=== PATIENT | female | born 1935 | race Asian ===

== ENCOUNTER → 2016-06-04 | Outpatient (CLI) | payer BC ==
[~2016-06-04] MED LIST: ACT35 PO; ASPEC81 PO; ASPI81TA28 PO; B-COTAB18 PO; CALC600T9 PO; CALC625T PO; CZR50 PO; FBR PO; GINKO BILOBA PO; HYDC25 PO; HYDR25TA4 PO; IBUP-1050 PO; LEVO50TA6 PO; LOSA1TAB38 PO; MAGN1TAB41 PO; MULT-190 PO; MULT-506 PO; OMEG10007 PO; PRT/20 PO; SYN50 PO; VIT B PO
== END | disposition home or self-care (01) ==
LOC: C.MAMM 13:08
PROVIDERS: ATTEND Family Medicine
DX: M85.851 Other specified disorders of bone density and structure, right thigh (principal); M85.852 Other specified disorders of bone density and structure, left thigh

== ENCOUNTER → 2016-08-23 | Day surgery (SDC) | payer BC ==
[2016-07-31 13:15] VITALS: Ht 157.5 cm; Wt 68.2 kg
[~2016-08-23] VITALS: Ht 157.5 cm; Wt 68.2 kg
[~2016-08-23] MED LIST changes: -ACT35 PO; -GINKO BILOBA PO; +LIDOCAINE HCL 1% MPF 5 ML VIAL ONE; +SODIUM CHLORIDE 0.9% INJ 10 ML VIAL ONE; -VIT B PO
[2016-08-23 14:38] VITALS: TEMP 36.6
--- NOTE | 2016-08-23 14:53 | History & Physical Bridge - [place] ---
H&P Re-Evaluation Bridge Note: I have examined the patient, reviewed the History & Physical and in the interval since the performance of the History & Physical I have noted the following changes of clinical significance: No changes noted
--- NOTE | 2016-08-23 15:24 | Discharge Instructions ---
Discharge Instructions Date of Service Aug 23, 2016. Visit Reason for Visit: Lumbar Radiculopathy Discharge Discharge Diagnosis / Problem: Left leg pain Discharge Goals Goal(s): Improve function Activity Recommendations Activity Limitations: resume your previous activity Anesthesia . Post Anesthesia Instructions: If you have had General Anesthesia or IV Sedation: * Do not drive today. * Resume driving when surgeon permits. * Do not make important decisions or sign legal documents today. * Call surgeon for: 1. Temperature elevations greater than 101 degrees F. 2. Uncontrollable pain. 3. Excessive bleeding. 4. Persistent nausea and vomiting. 5. Medication intolerance (nausea, vomiting or rash). * For nausea and vomiting use only clear liquids such as: tea, soda, bouillon until nausea subsides, then gradually increase diet as tolerated. * If you have any concerns or questions, call your surgeon's office. If physician is unavailable and it is an emergency, call 911 or go to the nearest emergency room. . Diet Recommendations Recommended Home Diet: resume previous diet Procedures Procedures Performed: CAUDAL EPIDURAL STEROID INJECTION. Pending Studies Studies pending at discharge: no Medical Emergencies . Who to Call and When: Medical Emergencies: If at any time you feel your situation is an emergency, please call 911 immediately. . Non-Emergent Contact Non-Emergency issues call your: Specialist . . "Provider Documentation" section prepared by Roque King.
[2016-08-23 15:31] VITALS: BP 177/80; PULSE 61; O2SAT 94
--- NOTE | 2016-08-23 16:06 | OPERATIVE REPORT ---
DATE OF OPERATION: 08/23/2016 PREOPERATIVE DIAGNOSES: Grade 1 L4-L5 spondylolisthesis with a history of a lumbar decompression and persistent left lower extremity radiculopathy. POSTOPERATIVE DIAGNOSIS: Same. PROCEDURE: Caudal epidural steroid injection under fluoroscopic guidance. INDICATIONS: The patient is an 81-year-old [place] female who presents today with radicular pain that has not responded to conservative measures. She is ready for an epidural and will be done via the caudal approach, given her history of surgery. PHYSICAL EXAMINATION: Pleasant female seated comfortably. She has no focal weakness. She has subjective decreased sensation in the right L4 dermatomal distribution. Negative seated straight leg raises. CONSENT: Verbal and written consent was obtained from the patient. Risks and benefits were reviewed. Risks include but are not limited to abscess and allergic reaction and she wishes to proceed. DESCRIPTION OF PROCEDURE: The patient was taken back to the special procedures room of the [facility] where she was maintained in a prone position. Backside was cleansed with Betadine x3 and a dry sterile dressing was applied. Fluoroscope was used to identify the sacral hiatus and the overlying skin was anesthetized with 3 mL of lidocaine 1% with a 25 gauge 1.5-inch needle. A 25 gauge 3.5 inch spinal needle was then directed under fluoroscopic guidance into the sacral hiatus and advanced into the sacral canal to the point of discomfort and was retracted a few millimeters and then injected after negative aspiration with 40 mg of Depo-Medrol and 5 mL of preservative free sodium chloride. Injection was well tolerated. DISPOSITION: 1. The patient is taken out into the discharge recovery area where she will be discharged home once discharge criteria have been met. 2. Follow up in the [facility] office in 2-4 weeks. I attest to the content of the Intraoperative Record and any orders documented therein. Any exceptio ns are noted below.
== END | disposition home or self-care (01) ==
LOC: X.SURG 14:23
PROVIDERS: ATTEND Physical Medicine & Rehabilitation
DX: M43.16 Spondylolisthesis, lumbar region (principal); M54.17 Radiculopathy, lumbosacral region; Z98.890 Other specified postprocedural states; Z79.82 Long term (current) use of aspirin

== ENCOUNTER → 2017-02-27 | Day surgery (SDC) | payer BC ==
[2017-01-31 11:34] VITALS: Ht 157.5 cm; Wt 68.2 kg
[~2017-02-27] VITALS: Ht 157.5 cm; Wt 68.2 kg
[~2017-02-27] MED LIST changes: -ASPEC81 PO; -CZR50 PO; -FBR PO; -HYDC25 PO
[2017-02-27 13:18] VITALS: TEMP 36.8
[2017-02-27 14:07] VITALS: BP 182/75; PULSE 59; O2SAT 95
--- NOTE | 2017-02-27 14:14 | Discharge Instructions ---
Discharge Instructions Date of Service Feb 27, 2017. Visit Reason for Visit: Lumbar Radiculopathy Discharge Discharge Diagnosis / Problem: leg and back pain Discharge Goals Goal(s): Decrease discomfort, Improve function Activity Recommendations Activity Limitations: resume your previous activity Anesthesia . Post Anesthesia Instructions: If you have had General Anesthesia or IV Sedation: * Do not drive today. * Resume driving when surgeon permits. * Do not make important decisions or sign legal documents today. * Call surgeon for: 1. Temperature elevations greater than 101 degrees F. 2. Uncontrollable pain. 3. Excessive bleeding. 4. Persistent nausea and vomiting. 5. Medication intolerance (nausea, vomiting or rash). * For nausea and vomiting use only clear liquids such as: tea, soda, bouillon until nausea subsides, then gradually increase diet as tolerated. * If you have any concerns or questions, call your surgeon's office. If physician is unavailable and it is an emergency, call 911 or go to the nearest emergency room. . Diet Recommendations Recommended Home Diet: resume previous diet Procedures Procedures Performed: CAUDAL EPIDURAL STEROID INJECTION Pending Studies Studies pending at discharge: no Medical Emergencies . Who to Call and When: Medical Emergencies: If at any time you feel your situation is an emergency, please call 911 immediately. . Non-Emergent Contact Non-Emergency issues call your: Specialist . . "Provider Documentation" section prepared by Roque King. .
--- NOTE | 2017-02-27 14:27 | OPERATIVE REPORT ---
DATE OF OPERATION: 02/27/2017 PREOPERATIVE DIAGNOSES: Multifactorial lumbar spinal stenosis, grade 1 L4-L5 spondylolisthesis and history of a lumbar decompression. POSTOPERATIVE DIAGNOSES: Same. PROCEDURE: Caudal epidural steroid injection under fluoroscopic guidance. INDICATIONS: The patient is an 81-year-old [place]ron[place] female who underwent an epidural injection in August with 80% improvement; however, the effect has worn off and she presents today for an injection to provide her with relief of radicular pain. PHYSICAL EXAMINATION: Pleasant female seated comfortably. She had no sensitivity to palpation over sciatic notches, normal lower extremity strength, decreased subjective sensation bilaterally in the L5 dermatomal distribution and also in the left S1 dermatomal distribution. CONSENT: Verbal and written consent was obtained from the patient. Risks and benefits were reviewed. Risks include but are not limited to abscess and allergic reaction. The patient wishes to proceed. PROCEDURE: The patient was taken back to the special procedures room of the [facility] where she was maintained in a prone position. Backside was cleansed with Betadine x3 and a dry sterile dressing was applied. Fluoroscope was used to identify sacral hiatus and the overlying skin was anesthetized with 4 mL of lidocaine 1% with a 25 gauge 1.5-inch needle. A 25 gauge 3.5 inch spinal needle was then directed under lateral fluoroscopic guidance into the sacral canal and advanced. She then underwent injection after negative aspiration of 40 mg of Depo-Medrol and 4 mL of preservative free 0.25%. Injection was well tolerated. DISPOSITION: 1. The patient is taken out into the discharge recovery area where she will be discharged home once discharge criteria have been met. 2. She will follow up in the [facility] office in 2-4 weeks. I attest to the content of the Intraoperative Record and any orders documented therein. Any exception s are noted below.
== END | disposition home or self-care (01) ==
LOC: X.SURG 13:05
PROVIDERS: ATTEND Physical Medicine & Rehabilitation
DX: M48.061 Spinal stenosis, lumbar region without neurogenic claudication (principal); M43.16 Spondylolisthesis, lumbar region

== ENCOUNTER 2021-06-03 13:16 | Observation (INO) ==
--- NOTE | 2021-06-03 13:44 | Emergency Department Note ---
ED Visit Note Patient was seen and evaluated at the bedside w/ Chente Cast PA-C. Please see their note for history, physical, details, and disposition. Patient suffered a ground-level fall on the ice in May 25 and had outpatient unremarkable x-ray at that time. Patient does have thoracic endplate deformity. The patient was attempted to be ambulated but was unable to do so. Patient will be admitted for PT OT and pain control. .
[2021-06-03 14:18] LABS: Basophils # (auto) 0.03 K/uL (0-0.2); Basophils % (auto) 0.5 %; Eosinophils % (auto) 1.8 %; Hematocrit (blood only) 40.5 % (37-47); Lymphocytes # (auto) 1.82 K/uL (1.2-3.4); Lymphocytes % (auto) 33.2 %; Mean Corpuscular Hemoglobin 33.1 pg (25-34); Mean Corpuscular Hgb Conc 34.6 g/dL (32-36); Mean Corpuscular Volume 95.7 fL (80-100); Mean Platelet Volume 9.9 fL (7.4-10.4); Monocytes % (auto) 7.3 %; Neutrophils # (auto) 3.14 K/uL (1.4-6.5); Neutrophils % (auto) 57.2 %; Platelet Count 181 K/uL (130-400); RDW Coefficient of Variation 12.6 % (11.5-14.5); RDW Standard Deviation 43.6 fL (36.4-46.3); Red Blood Count 4.23 M/uL (4.2-5.4); White Blood Count 5.49 K/uL (4.8-10.8)
[2021-06-03 14:42] LABS: Albumin Globulin Ratio 1.4 (0.9-2); Albumin Level 4.1 gm/dl (3.4-5.0); BUN Creatinine Ratio 21.5 (10-20); Bilirubin,Total 0.6 mg/dl (0.2-1.0); Calcium 9.8 mg/dl (8.5-10.1); Creatinine Clr Calc Pharmacy 46.1 ml/min; Est GFR (African American) 79.1 ml/min; Est GFR (Non-African American) 68.3 ml/min; Potassium 3.7 mmol/L (3.5-5.1); Total Protein 7.1 gm/dl (6.0-8.3)
[2021-06-03] MEDS ORDERED: OPTIRAY 320 100ml IV ONE (15:14)
--- NOTE | 2021-06-03 15:37 | Emergency Department Note ---
History of Present Illness General Chief complaint: Fall Stated complaint: FALL,LEFT SIDE AND HIP PAIN Time Seen by Provider: 06/03/21 13:27 History of Present Illness Maximum Pain Intensity: 8 This is an 85-year-old female that presents to the emergency department via private vehicle with complaints of "fall, left side and hip pain". The patient states that she fell on 05/25 of this year. She states that she fell on the ice. She believes that she laid on the ice for about an hour and a half. Since that time she notes mid back pain that radiates into her chest and abdomen. She d enies any pain in the chest or shortness of breath, rather just notes radiation of pain from her back. No fevers or chills. She also notes some abdominal bloating. She did have low back x-rays in the outpatient setting. Patient notes that each day her pain seems to worsen now to a point where she was barely able to move today. Normal activities such as getting out of bed or just a few minutes normally however today took over an hour. She rates her overall discomfort at this time as an 8/10. No lower extremity weakness, bowel or bladder incontinence, numbness or tingling in genital region. No weakness. No radiation of pain in the extremities. Home Medications Medication Instructions Recorded Confirmed Type hydrochlorothiazide 12.5 mg capsule 12.5 mg PO HS 07/14/19 06/03/21 History levothyroxine 50 mcg tablet 50 mcg PO DAILYBB 07/14/19 06/03/21 History (Synthroid) losartan 100 mg tablet (Cozaar) 100 mg PO HS 07/14/19 06/03/21 History magnesium oxide 400 mg PO BID 07/14/19 06/03/21 History multivitamin (Daily Multi-Vitamin) 1 tab PO QAM 07/14/19 06/03/21 History omega 9-zgw-[id number]-fish oil 1,000 mg 1 cap PO BID 07/14/19 06/03/21 History (120 mg-180 mg) capsule (Fish Oil) vit C,E,zinc,copper-[id number] 250 1 cap PO QAM 07/14/19 06/03/21 History mg-lutein 5 mg-zeaxanthin 1 mg capsule (Ocuvite Adult 50 Plus) vitamin B complex (B 1 tab PO QAM PRN 07/14/19 06/03/21 History Complex-Vitamin B12) turmeric 400 mg capsule 800 mg PO QAM 12/10/19 06/03/21 History diclofenac sodium 1 % topical gel 0.5 g TOPICAL QID PRN 12/04/20 06/03/21 History (Voltaren Arthritis Pain) Cbd Chewable Tablet 1 tab PO DIRECTED PRN 03/07/21 06/03/21 History Allergies Allergy/AdvReac Type Severity Reaction Status Date / Time diphtheria toxoid,fluid Allergy Intermediate LOCAL Verified 06/03/21 15:00 REDNESS AND SWELLING lactose Allergy Intermediate GI UPSET Verified 06/03/21 15:00 milk Allergy Intermediate GI UPSET Verified 06/03/21 15:00 tetanus toxoid, adsorbed Allergy Intermediate LOCAL Verified 06/03/21 15:00 REDNESS AND SWELLING latex Allergy Mild REDNESS, Verified 06/03/21 15:00 RASH alendronate sodium Allergy Unknown PT DOES Verified 06/03/21 15:00 NOT REMEMBER REACTION diltiazem Allergy Unknown PT DOES Verified 06/03/21 15:00 NOT REMEMBER REACTION lisinopril Allergy Unknown PT DOES Verified 06/03/21 15:00 NOT REMEMBER REACTION Sulfa (Sulfonamide Allergy Unknown PT DOES Verified 06/03/21 15:00 Antibiotics) NOT REMEMBER REACTION adhesive AdvReac Intermediate RED SKIN Verified 06/03/21 15:00 W/ BLISTERS FROM BANDAIDS amoxicillin AdvReac Intermediate MUSCLE Verified 06/03/21 15:00 WEAKNESS Past Med/Surg History Medical History (Updated 06/03/21 @ 17:28 by Chente Cast PA-C) Arthritis GERD (gastroesophageal reflux disease) Hypertension Hypothyroidism Osteoporosis Prediabetes Surgical History History of colonoscopy History of total knee replacement R/L S/P epidural steroid injection Family History Sister Family history of diabetes mellitus Social History Smoking Status: Never smoker Second Hand Exposure: No; Hx Alcohol Use: No Hx Substance Use: No Preferred Language: [place]ian [place]ognos Bi Administrator Required: No Beliefs That Will Affect Care: None Current Living Situation: Family Feels Safe at Home: Yes Assistive Devices: Glasses Review of Systems A total of 10 systems reviewed and were otherwise negative Physical Exam Vital Signs Vital Signs - 24 hr 06/03/21 13:19 06/03/21 15:16 06/03/21 16:45 Temperature 36.3 C L Temperature Source Temporal Artery Scan Pulse Rate 64 Pulse Rate [Apical] 90 Respiratory Rate 18 18 Respiratory Effort / Characteristics Non-Labored Respiratory Depth Normal Blood Pressure 187/82 H Blood Pressure [Left Arm] 184/76 H Blood Pressure Mean 117 Blood Pressure Mean [Left Arm] 112 Pulse Oximetry 98 98 97 Oxygen Delivery Method Room Air Room Air Room Air Sepsis Recent Fever Within 48 Hours No Sepsis New/Unexplained Change in Mental Status No Sepsis Action Taken by Nursing No Action Required VITAL SIGNS - Vital signs and nursing notes were reviewed. Hypertensive, otherwise stable. GENERAL -85-year-old female appearing her stated age. Communicates well with provider and answers questions appropriately. No meningeal or petechial rash. SKIN - Gross examination of the entire body surface demonstrates no lacerations to the body surface. HEAD - Normocephalic, Atraumatic. No Farooq's Sign or Raccoon's Eyes. No depressed skull fractures palpable. EYES - PERRL with EOMI bilaterally. Without subconjunctival hemorrhage. EARS - No deformities of external structures noted on gross examination bilaterally. NOSE - Midline and without cyanosis. No epistaxis or clear watery discharge noted. MOUTH/OROPHARYNX - Without perioral cyanosis. NECK - No tenderness to palpation over the cervical spinous processes. No cervical paraspinal muscle tenderness noted. LUNGS - Chest wall symmetric without accessory muscle use, intercostals retractions, or central cyanosis. No flail chest or depressed fractures noted. No paradoxical chest wall movements noted. Normal vesicular breath sounds CTA B/L. No wheezes, rales, or rhonchi appreciated. CARDIAC - RRR with S1/S2. No murmur, rubs, or gallops appreciated. ABDOMEN - Abdominal contour normal and without pulsations or visible masses. BS normoactive all four quadrants. No rebound tenderness or guarding noted. Negative Keven's or Noguera Hernandez's Signs. No tenderness, palpable masses, hepatosplenomegaly, or ascites noted. EXTREMITIES - No gross deformities noted of the extremities. +5/5 strength noted in UE/LE bilaterally. NEUROLOGIC - Cranial nerves II through XII grossly intact. PSYCH - A&Ox3 and cooperates fully with examiner. Pt is very pleasant and interacts well with examiner. Course Administered Medications Discontinued Medications Ioversol (Optiray 320 100ml) 91 ml IV ONCE ONE Stop: 06/03/21 15:15 Last Admin: 06/03/21 15:15 Dose: 91 ml Documented by: [id number] Morphine Sulfate (Morphine Sulfate 2 Mg/Ml Carp) 2 mg IV NOW STA Stop: 06/03/21 16:28 Last Admin: 06/03/21 16:40 Dose: 2 mg Documented by: [id number] Ondansetron HCl (Ondansetron Inj 2 Mg/Ml 2 Ml Vial) 4 mg IV NOW STA Stop: 06/03/21 16:28 Last Admin: 06/03/21 16:40 Dose: 4 mg Documented by: [id number] Medical Decision Making Laboratory Data Result diagrams: 06/03/21 14:10 06/03/21 14:10 Lab Results 06/03/21 06/03/21 06/03/21 Range/Units 14:10 14:10 16:40 WBC 5.49 (4.8-10.8) K/uL RBC 4.23 (4.2-5.4) M/uL Hgb 14.0 (12.0-16.0) g/dL Hct 40.5 (37-47) % MCV 95.7 (80-100) fL MCH 33.1 (25-34) pg MCHC 34.6 (32-36) g/dL RDW Std Deviation 43.6 (36.4-46.3) fL RDW Coeff of Whitley 12.6 (11.5-14.5) % Plt Count 181 (130-400) K/uL MPV 9.9 (7.4-10.4) fL Immature Gran % (Auto) 0.0 % Neut % (Auto) 57.2 % Lymph % (Auto) 33.2 % Hawkins % (Auto) 7.3 % Eos % (Auto) 1.8 % Baso % (Auto) 0.5 % Neut # (Auto) 3.14 (1.4-6.5) K/uL Lymph # (Auto) 1.82 (1.2-3.4) K/uL Hawkins # (Auto) 0.40 (0.11-0.59) K/uL Eos # (Auto) 0.10 (0-0.5) K/uL Baso # (Auto) 0.03 (0-0.2) K/uL Immature Gran # (Auto) 0.00 (0.00-0.02) K/uL Sodium 137 (136-145) mmol/L Potassium 3.7 (3.5-5.1) mmol/L Chloride 103 (98-107) mmol/L Carbon Dioxide 26 (21-32) mmol/L Anion Gap 8 (3-11) BUN 17 (6-23) mg/dl Creatinine 0.79 (0.6-1.2) mg/dl Est Cr Clr Drug Dosing 46.1 ml/min Est GFR ( Amer) 79.1 ml/min Est GFR (Non-Af Amer) 68.3 ml/min BUN/Creatinine Ratio 21.5 H (10-20) Glucose 99 (70-99(Fasting)) mg/dl Calcium 9.8 (8.5-10.1) mg/dl Total Bilirubin 0.6 (0.2-1.0) mg/dl AST 17 (13-39) U/L ALT 13 (7-52) U/L Alkaline Phosphatase 51 (34-104) U/L Total Creatine Kinase 83 (26-192) U/L Total Protein 7.1 (6.0-8.3) gm/dl Albumin 4.1 (3.4-5.0) gm/dl Globulin 3.0 (2.5-4.0) gm/dl Albumin/Globulin Ratio 1.4 (0.9-2) SARS-CoV-2, RNA, NAAT NEGATIVE (NEGATIVE) Imaging Data Radiologist's Impression: Lumbar Spine CT 06/03/21 13:46 CT SCAN OF THE CHEST, ABDOMEN, AND PELVIS WITH IV CONTRAST; CT SCAN OF THE THOR ACIC SPINE WITH IV CONTRAST; CT SCAN OF THE LUMBAR SPINE WITH IV CONTRAST CLINICAL HISTORY: Fall several days ago. COMPARISON STUDY: CT scan of the chest, abdomen, and pelvis dated 03/07/2021. Lumbar spine radiographs dated 05/31/2021. TECHNIQUE: Following the IV administration of 91 of Optiray 320, CT scan of the chest, abdomen, and pelvis was performed from the thoracic inlet to the proximal femora. Additionally, CT scan of the thoracic spine is performed from the lower cervical spine to the upper lumbar spine and CT scan of the lumbar spine is performed from the lower thoracic spine to the sacrum. Images for these examinations are reviewed in the axial, sagittal, and coronal planes. IV contrast was administered without complication. A dose lowering technique was utilized adhering to the principles of ALARA. CT DOSE: 1962.62 mGy.cm FINDINGS: CHEST: Thyroid: Imaged portions of the thyroid gland are normal in size and attenuation. Thoracic aorta: There is atherosclerotic calcification of the thoracic aorta, which is normal in caliber and demonstrates bowel: There arch anatomy. No dissection is seen. Pulmonary vasculature: The pulmonary trunk is normal in caliber. There are no filling defects identified in the central pulmonary vessels to indicate pulmonary embolus. Note that this examination was not protocoled for evaluation of the pulmonary arteries. Heart: The heart is mildly enlarged and without pericardial effusion. There are scattered coronary artery calcifications. Lungs and pleural spaces: Subpleural reticulation and mild groundglass change is seen throughout both lungs with a lower lobe predominance. This suggests chronic interstitial lung disease. Apical fibrosis is observed. There is no airspace consolidation typical for pneumonia, pleural effusion, or pneumothorax. An in determinant 9 mm pulmonary nodule in the left upper lobe is seen on image #80 and a 6 mm pleural-based nodule in the right middle lobe is seen on image #186. There are scattered calcified granulomas. The trachea and central airways are clear. Mediastinum: Prominent mediastinal lymph nodes measuring up to 11 mm in short axis are unchanged. There is no mediastinal hematoma. Karyna: Clear. Axillae: There is no axillary lymphadenopathy. Bony thorax: The skeletal structures are osteopenic. There subacute to chronic bilateral rib fractures. No acute rib fracture is identified. See below for dedicated assessment of the thoracic spine. No lytic or blastic lesions are identified. THORACIC SPINE: There is a mild acute superior endplate compression fracture of T11. No retropulsed fragments are identified. Vertebral body height is otherwise maintained at the thoracic spine. Alignment is preserved. Small anterior osteophytes are seen throughout. The transverse and spinous processes are intact. The disc spaces are preserved. There is no evidence of large disc herniation or high-grade central canal stenosis by CT. The paraspinous soft tissues are normal in appearance. ABDOMEN AND PELVIS: Liver: The contrast-enhanced liver is normal in size, contour, and attenuation. There is no intrahepatic biliary ductal dilatation. The hepatic veins and portal veins are patent. Calcified granulomas are noted in the inferior right lobe. Gallbladder: Unremarkable. Spleen: Normal in size and attenuation. Pancreas: Unremarkable. Adrenal glands: Unremarkable. Kidneys: The contrast enhanced kidneys demonstrate mild cortical atrophy and are without hydronephrosis. The kidneys enhance symmetrically. Abdominal vasculature: The abdominal aorta is normal in course and caliber noting mild to moderate atherosclerotic calcification. Bowel: Mild to moderate fecal retention is seen throughout the colon. No bowel obstruction is identified. The appendix is well-visualized and normal. Peritoneum: There is no intraperitoneal free air or abdominal ascites. There is a small fat-containing umbilical hernia. Lymphadenopathy: None. Pelvic viscera: The bladder, uterus, and adnexa are normal as visualized. Skeletal structures: The skeletal structures are osteopenic. The bony pelvis and proximal femora appear intact. See below for dedicated assessment of the lumbar spine. No lytic or blastic lesions are seen. LUMBAR SPINE: Vertebral body height is maintained throughout the lumbar spine. There is no evidence of acute fracture or malalignment. The transverse and spinous processes are intact. There is no evidence of spondylolysis. There is moderate disc space narrowing at L4-L5. Mild disc space narrowing is seen at the remaining lumbar levels. Disc bulges are noted at L3-L4 and L5-S1. There is minimal anterolisthesis at L4-L5. Alignment is otherwise preserved. Anterior and lateral marginal osteophytes are seen throughout. Facet arthropathy is noted in the lower lumbar region. Postlaminectomy change is noted at L4. The paraspinous soft tissues are within normal limits. IMPRESSION: 1. There is no airspace consolidation, pleural effusion, or pneumothorax. 2. There is a mild acute superior endplate compression fracture of T11. No retropulsed fragments are identified. 3. No additional fracture is seen involving the thoracic spine. 4. There is no evidence of fracture or malalignment involving the lumbar spine. 5. There is no evidence of solid organ injury in the abdomen or pelvis. 6. Chronic parenchymal pulmonary findings and subcentimeter pulmonary nodules as above. This has not appreciably changed as compared to the 03/07/[address] 7. Mild cardiomegaly. 8. Additional findings as above. ACT 112: Negative or not required by law. Electronically signed by: Mic Marshall M.D. 06/03/2021 3:[address] 01/22/22 13:46 CT SCAN OF THE CHEST, ABDOMEN, AND PELVIS WITH IV CONTRAST; CT SCAN OF THE THORACIC SPINE WITH IV CONTRAST; CT SCAN OF THE LUMBAR SPINE WITH IV CONTRAST CLINICAL HISTORY: Fall several days ago. COMPARISON STUDY: CT scan of the chest, abdomen, and pelvis dated 03/07/2021. Lumbar spine radiographs dated 05/31/2021. TECHNIQUE: Following the IV administration of 91 of Optiray 320, CT scan of the chest, abdomen, and pelvis was performed from the thoracic inlet to the proximal femora. Additionally, CT scan of the thoracic spine is performed from the lower cervical spine to the upper lumbar spine and CT scan of the lumbar spine is performed from the lower thoracic spine to the sacrum. Images for these examinations are reviewed in the axial, sagittal, and coronal planes. IV contrast was administered without complication. A dose lowering technique was utilized adhering to the principles of ALARA. CT DOSE: 1962.62 mGy.cm FINDINGS: CHEST: Thyroid: Imaged portions of the thyroid gland are normal in size and attenuation. Thoracic aorta: There is atherosclerotic calcification of the thoracic aorta, which is normal in caliber and demonstrates bowel: There arch anatomy. No dissection is seen. Pulmonary vasculature: The pulmonary trunk is normal in caliber. There are no filling defects identified in the central pulmonary vessels to indicate pulmonary embolus. Note that this examination was not protocoled for evaluation of the pulmonary arteries. Heart: The heart is mildly enlarged and without pericardial effusion. There are scattered coronary artery calcifications. Lungs and pleural spaces: Subpleural reticulation and mild groundglass change is seen throughout both lungs with a lower lobe predominance. This suggests chronic interstitial lung disease. Apical fibrosis is observed. There is no airspace consolidation typical for pneumonia, pleural effusion, or pneumothorax. An indeterminant 9 mm pulmonary nodule in the left upper lobe is seen on image #80 and a 6 mm pleural-based nodule in the right middle lobe is seen on image #186. There are scattered calcified granulomas. The trachea and central airways are clear. Mediastinum: Prominent mediastinal lymph nodes measuring up to 11 mm in short axis are unchanged. There is no mediastinal hematoma. Karyna: Clear. Axillae: There is no axillary lymphadenopathy. Bony thorax: The skeletal structures are osteopenic. There subacute to chronic bilateral rib fractures. No acute rib fracture is identified. See below for dedicated assessment of the thoracic spine. No lytic or blastic lesions are identified. THORACIC SPINE: There is a mild acute superior endplate compression fracture of T11. No retropulsed fragments are identified. Vertebral body height is otherwise maintained at the thoracic spine. Alignment is preserved. Small anterior osteophytes are seen throughout. The transverse and spinous processes are intact. The disc spaces are preserved. There is no evidence of large disc herniation or high-grade central canal stenosis by CT. The paraspinous soft tissues are normal in appearance. ABDOMEN AND PELVIS: Liver: The contrast-enhanced liver is normal in size, contour, and attenuation. There is no intrahepatic biliary ductal dilatation. The hepatic veins and portal veins are patent. Calcified granulomas are noted in the inferior right lobe. Gallbladder: Unremarkable. Spleen: Normal in size and attenuation. Pancreas: Unremarkable. Adrenal glands: Unremarkable. Kidneys: The contrast enhanced kidneys demonstrate mild cortical atrophy and are without hydronephrosis. The kidneys enhance symmetrically. Abdominal vasculature: The abdominal aorta is normal in course and caliber noting mild to moderate atherosclerotic calcification. Bowel: Mild to moderate fecal retention is seen throughout the colon. No bowel obstruction is identified. The appendix is well-visualized and normal. Peritoneum: There is no intraperitoneal free air or abdominal ascites. There is a small fat-containing umbilical hernia. Lymphadenopathy: None. Pelvic viscera: The bladder, uterus, and adnexa are normal as visualized. Skeletal structures: The skeletal structures are osteopenic. The bony pelvis and proximal femora appear intact. See below for dedicated assessment of the lumbar spine. No lytic or blastic lesions are seen. LUMBAR SPINE: Vertebral body height is maintained throughout the lumbar spine. There is no evidence of acute fracture or malalignment. The transverse and spi nous processes are intact. There is no evidence of spondylolysis. There is moderate disc space narrowing at L4-L5. Mild disc space narrowing is seen at the remaining lumbar levels. Disc bulges are noted at L3-L4 and L5-S1. There is minimal anterolisthesis at L4-L5. Alignment is otherwise preserved. Anterior and lateral marginal osteophytes are seen throughout. Facet arthropathy is noted in the lower lumbar region. Postlaminectomy change is noted at L4. The paraspinous soft tissues are within normal limits. IMPRESSION: 1. There is no airspace consolidation, pleural effusion, or pneumothorax. 2. There is a mild acute superior endplate compression fracture of T11. No retropulsed fragments are identified. 3. No additional fracture is seen involving the thoracic spine. 4. There is no evidence of fracture or malalignment involving the lumbar spine. 5. There is no evidence of solid organ injury in the abdomen or pelvis. 6. Chronic parenchymal pulmonary findings and subcentimeter pulmonary nodules as above. This has not appreciably changed as compared to the 03/07/[address] 7. Mild cardiomegaly. 8. Additional findings as above. ACT 112: Negative or not required by law. Electronically signed by: iMc Marshall M.D. 06/03/2021 3:59 PM Abdomen/Pelvis CT 06/03/21 13:47 CT SCAN OF THE CHEST, ABDOMEN, AND PELVIS WITH IV CONTRAST; CT SCAN OF THE THORACIC SPINE WITH IV CONTRAST; CT SCAN OF THE LUMBAR SPINE WITH IV CONTRAST CLINICAL HISTORY: Fall several days ago. COMPARISON STUDY: CT scan of the chest, abdomen, and pelvis dated 03/07/2021. Lumbar spine radiographs dated 05/31/2021. TECHNIQUE: Following the IV administration of 91 of Optiray 320, CT scan of the chest, abdomen, and pelvis was performed from the thoracic inlet to the proximal femora. Additionally, CT scan of the thoracic spine is performed from the lower cervical spine to the upper lumbar spine and CT scan of the lumbar spine is performed from the lower thoracic spine to the sacrum. Images for these examinations are reviewed in the axial, sagittal, and coronal planes. IV contrast was administered without complication. A dose lowering technique was utilized adhering to the principles of ALARA. CT DOSE: 1962.62 mGy.cm FINDINGS: CHEST: Thyroid: Imaged portions of the thyroid gland are normal in size and at tenuation. Thoracic aorta: There is atherosclerotic calcification of the thoracic aorta, which is normal in caliber and demonstrates bowel: There arch anatomy. No dissection is seen. Pulmonary vasculature: The pulmonary trunk is normal in caliber. There are no filling defects identified in the central pulmonary vessels to indicate pulmonary embolus. Note that this examination was not protocoled for evaluation of the pulmonary arteries. Heart: The heart is mildly enlarged and without pericardial effusion. There are scattered coronary artery calcifications. Lungs and pleural spaces: Subpleural reticulation and mild groundglass change is seen throughout both lungs with a lower lobe predominance. This suggests chronic interstitial lung disease. Apical fibrosis is observed. There is no airspace consolidation typical for pneumonia, pleural effusion, or pneumothorax. An indeterminant 9 mm pulmonary nodule in the left upper lobe is seen on image #80 and a 6 mm pleural-based nodule in the right middle lobe is seen on image #186. There are scattered calcified granulomas. The trachea and central airways are clear. Mediastinum: Prominent mediastinal lymph nodes measuring up to 11 mm in short axis are unchanged. There is no mediastinal hematoma. Karyna: Clear. Axillae: There is no axillary lymphadenopathy. Bony thorax: The skeletal structures are osteopenic. There subacute to chronic bilateral rib fractures. No acute rib fracture is identified. See below for dedicated assessment of the thoracic spine. No lytic or blastic lesions are identified. THORACIC SPINE: There is a mild acute superior endplate compression fracture of T11. No retropulsed fragments are identified. Vertebral body height is otherwise maintained at the thoracic spine. Alignment is preserved. Small anterior osteophytes are seen throughout. The transverse and spinous processes are in tact. The disc spaces are preserved. There is no evidence of large disc herniation or high-grade central canal stenosis by CT. The paraspinous soft tissues are normal in appearance. ABDOMEN AND PELVIS: Liver: The contrast-enhanced liver is normal in size, contour, and attenuation. There is no intrahepatic biliary ductal dilatation. The hepatic veins and portal veins are patent. Calcified granulomas are noted in the inferior right lobe. Gallbladder: Unremarkable. Spleen: Normal in size and attenuation. Pancreas: Unremarkable. Adrenal glands: Unremarkable. Kidneys: The contrast enhanced kidneys demonstrate mild cortical atrophy and are without hydronephrosis. The kidneys enhance symmetrically. Abdominal vasculature: The abdominal aorta is normal in course and caliber no ting mild to moderate atherosclerotic calcification. Bowel: Mild to moderate fecal retention is seen throughout the colon. No bowel obstruction is identified. The appendix is well-visualized and normal. Peritoneum: There is no intraperitoneal free air or abdominal ascites. There is a small fat-containing umbilical hernia. Lymphadenopathy: None. Pelvic viscera: The bladder, uterus, and adnexa are normal as visualized. Skeletal structures: The skeletal structures are osteopenic. The bony pelvis and proximal femora appear intact. See below for dedicated assessment of the lumbar spine. No lytic or blastic lesions are seen. LUMBAR SPINE: Vertebral body height is maintained throughout the lumbar spine. There is no evidence of acute fracture or malalignment. The transverse and spinous processes are intact. There is no evidence of spondylolysis. There is moderate disc space narrowing at L4-L5. Mild disc space narrowing is seen at the remaining lumbar levels. Disc bulges are noted at L3-L4 and L5-S1. There is minimal anterolisthesis at L4-L5. Alignment is otherwise preserved. Anterior and lateral marginal osteophytes are seen throughout. Facet arthropathy is noted in the lower lumbar region. Postlaminectomy change is noted at L4. The paraspinous soft tissues are within normal limits. IMPRESSION: 1. There is no airspace consolidation, pleural effusion, or pneumothorax. 2. There is a mild acute superior endplate compression fracture of T11. No retropulsed fragments are identified. 3. No additional fracture is seen involving the thoracic spine. 4. There is no evidence of fracture or malalignment involving the lumbar spine. 5. There is no evidence of solid organ injury in the abdomen or pelvis. 6. Chronic parenchymal pulmonary findings and subcentimeter pulmonary nodules as above. This has not appreciably changed as compared to the 03/07/[address] 7. Mild cardiomegaly. 8. Additional findings as above. ACT 112: Negative or not required by law. Electronically signed by: Mci Marshall M.D. 06/03/2021 3:[address] 06/03/21 13:47 CT SCAN OF THE CERVICAL SPINE CLINICAL HISTORY: Trauma. Fall. COMPARISON STUDY: No priors. TECHNIQUE: CT scan of the cervical spine is performed from the skull base to the upper thoracic spine. Images are reviewed in the axial, sagittal, and coronal planes. IV contrast was not administered for this examination. A dose lowering technique was utilized adhering to the principles of ALARA. FINDINGS: Skeletal structures: The skeletal structures are ostiomeatal. There is no evidence of fracture or subluxation involving the cervical spine. Vertebral body height and alignment are maintained. There is mild straightening of the cervical lordosis. The odontoid process and lateral masses are intact. The atlantoaxial articulation is preserved noting productive degenerative change. There is minimal multilevel facet arthropathy. The spinous processes appear intact. Intervertebral discs: There is only minimal degenerative disc space narrowing. Central canal: Posterior disc osteophyte complexes at C3-C4, C4-C5, and C5-C6 likely contribute to acquired compromise of the central canal. Soft tissues: The prevertebral and paraspinous soft tissues are within normal limits. Calvarium: The visualized calvarium at the skull base appears intact. Brain parenchyma: Partially visualized brain parenchyma at the skull base is within normal limits. Sinuses and mastoids: Retention cyst is partially visualized in the right maxillary antrum. The mastoid air cells are well pneumatized. Lung apices: Parenchyma scarring is noted at the apices. Upper lobe lung parenchyma is otherwise clear as visualized. IMPRESSION: 1. There is no evidence of fracture or subluxation involving the cervical spine. 2. Osteopenia and spondylotic change as above. ACT 112: Negative or not required by law. Electronically signed by: Mic Marshall M.D. 06/03/2021 3:[address] 06/03/21 13:47 CT SCAN OF THE CHEST, ABDOMEN, AND PELVIS WITH IV CONTRAST; CT SCAN OF THE THORACIC SPINE WITH IV CONTRAST; CT SCAN OF THE LUMBAR SPINE WITH IV CONTRAST CLINICAL HISTORY: Fall several days ago. COMPARISON STUDY: CT scan of the chest, abdomen, and pelvis dated 03/07/2021. Lumbar spine radiographs dated 05/31/2021. TECHNIQUE: Following the IV administration of 91 of Optiray 320, CT scan of the chest, abdomen, and pelvis was performed from the thoracic inlet to the proximal femora. Additionally, CT scan of the thoracic spine is performed from the lower cervical spine to the upper lumbar spine and CT scan of the lumbar spine is performed from the lower thoracic spine to the sacrum. Images for these exami nations are reviewed in the axial, sagittal, and coronal planes. IV contrast was administered without complication. A dose lowering technique was utilized adhering to the principles of ALARA. CT DOSE: 1962.62 mGy.cm FINDINGS: CHEST: Thyroid: Imaged portions of the thyroid gland are normal in size and attenuation. Thoracic aorta: There is atherosclerotic calcification of the thoracic aorta, which is normal in caliber and demonstrates bowel: There arch anatomy. No d issection is seen. Pulmonary vasculature: The pulmonary trunk is normal in caliber. There are no filling defects identified in the central pulmonary vessels to indicate pulmo nary embolus. Note that this examination was not protocoled for evaluation of the pulmonary arteries. Heart: The heart is mildly enlarged and without pericardial effusion. There are scattered coronary artery calcifications. Lungs and pleural spaces: Subpleural reticulation and mild groundglass change is seen throughout both lungs with a lower lobe predominance. This suggests chronic interstitial lung disease. Apical fibrosis is observed. There is no airspace consolidation typical for pneumonia, pleural effusion, or pneumothorax. An indeterminant 9 mm pulmonary nodule in the left upper lobe is seen on image #80 and a 6 mm pleural-based nodule in the right middle lobe is seen on image #186. There are scattered calcified granulomas. The trachea and central airways are clear. Mediastinum: Prominent mediastinal lymph nodes measuring up to 11 mm in short axis are unchanged. There is no mediastinal hematoma. Karyna: Clear. Axillae: There is no axillary lymphadenopathy. Bony thorax: The skeletal structures are osteopenic. There subacute to chronic bilateral rib fractures. No acute rib fracture is identified. See below for dedicated assessment of the thoracic spine. No lytic or blastic lesions are identified. THORACIC SPINE: There is a mild acute superior endplate compression fracture of T11. No retropulsed fragments are identified. Vertebral body height is otherwise maintained at the thoracic spine. Alignment is preserved. Small anterior osteophytes are seen throughout. The transverse and spinous processes are intact. The disc spaces are preserved. There is no evidence of large disc herniation or high-grade central canal stenosis by CT. The paraspinous soft tissues are normal in appearance. ABDOMEN AND PELVIS: Liver: The contrast-enhanced liver is normal in size, contour, and attenuation. There is no intrahepatic biliary ductal dilatation. The hepatic veins and portal veins are patent. Calcified granulomas are noted in the inferior right lobe. Gallbladder: Unremarkable. Spleen: Normal in size and attenuation. Pancreas: Unremarkable. Adrenal glands: Unremarkable. Kidneys: The contrast enhanced kidneys demonstrate mild cortical atrophy and are without hydronephrosis. The kidneys enhance symmetrically. Abdominal vasculature: The abdominal aorta is normal in course and caliber noting mild to moderate atherosclerotic calcification. Bowel: Mild to moderate fecal retention is seen throughout the colon. No bowel obstruction is identified. The appendix is well-visualized and normal. Peritoneum: There is no intraperitoneal free air or abdominal ascites. There is a small fat-containing umbilical hernia. Lymphadenopathy: None. Pelvic viscera: The bladder, uterus, and adnexa are normal as visualized. Skeletal structures: The skeletal structures are osteopenic. The bony pelvis and proximal femora appear intact. See below for dedicated assessment of the lumbar spine. No lytic or blastic lesions are seen. LUMBAR SPINE: Vertebral body height is maintained throughout the lumbar spine. There is no evidence of acute fracture or malalignment. The transverse and spinous processes are intact. There is no evidence of spondylolysis. There is moderate disc space narrowing at L4-L5. Mild disc space narrowing is seen at the remaining lumbar levels. Disc bulges are noted at L3-L4 and L5-S1. There is minimal anterolisthesis at L4-L5. Alignment is otherwise preserved. Anterior and lateral marginal osteophytes are seen throughout. Facet arthropathy is noted in the lower lumbar region. Postlaminectomy change is noted at L4. The paraspinous soft tissues are within normal limits. IMPRESSION: 1. There is no airspace consolidation, pleural effusion, or pneumothorax. 2. There is a mild acute superior endplate compression fracture of T11. No retropulsed fragments are identified. 3. No additional fracture is seen involving the thoracic spine. 4. There is no evidence of fracture or malalignment involving the lumbar spine. 5. There is no evidence of solid organ injury in the abdomen or pelvis. 6. Chronic parenchymal pulmonary findings and subcentimeter pulmonary nodules as above. This has not appreciably changed as compared to the 03/07/[address] 7. Mild cardiomegaly. 8. Additional findings as above. ACT 112: Negative or not required by law. Electronically signed by: Mic Marshall M.D. 06/03/2021 3:[address] 06/03/21 13:47 CT SCAN OF THE BRAIN WITHOUT IV CONTRAST CLINICAL HISTORY: Fall. COMPARISON STUDY: No priors. TECHNIQUE: Unenhanced axial CT scan of the brain is performed from the vertex to the skull base. A dose lowering technique was utilized adhering to the principles of ALARA. FINDINGS: Brain parenchyma: There are age-related involutional changes noting minimal microangiopathic disease. There is no hemorrhage, mass effect, or evidence of acute territorial ischemia by CT criteria. Stevenson-white matter differentiation is preserved. No extra-axial fluid collection is seen. Ventricles, sulci, cisterns: Prominent secondary to involutional change. Intracranial vasculature: There is mild atherosclerotic calcification of the cavernous carotid arteries. Calvarium: The skeletal structures are osteopenic. There is no depressed calvarial fracture. Sinuses and mastoids: The visualized paranasal sinuses are clear. The mastoid air cells are well pneumatized. Orbits: The bony orbits are grossly intact. There are bilateral ocular lens implants. IMPRESSION: There is no hemorrhage, mass effect, or evidence of acute territorial ischemia by CT criteria. ACT 112: Negative or not required by law. Electronically signed by: Mic Marshall M.D. 06/03/2021 3:36 PM MDM Narrative Patient was seen and evaluated as above in room C09. Review was performed of nursing notes and vital signs. I did review pertinent previous visits and patient history. After obtaining a thorough history and physical examination the above work up was performed. Patient presents to us today status post fall on ice that occurred several days ago now with worsening back pain that radiates into the abdominal region and right anterior ribs/chest region. No chest pain. No shortness of breath. No neurovascular deficits. Patient appears to be in pain. Options of care were discussed with the patient. IV access was established. Labs were drawn. Imaging was felt to be warranted of the head to pelvis via CT scan to evaluate for trauma secondary to fall with her worsening pain. Imaging as above. Patient does have what appears to be a mild acute superior endplate compression fracture of T11. Otherwise findings are overall reassuring. Her laboratory studies reveal no leukocytosis or concerning anemia. No emergent metabolic disturbance. COVID test negative. I did attempt to contact the patient's son via phone to review findings and plan of care. Patient expresses concern about going home noting her level of pain. I will note that she does appear to be in a fair amount of discomfort and I did order her pain medication. We started with a small dose of morphine and Zofran for any potential nausea. I did attempt an ambulatory trial with the patient while RN was at bedside and the patient was not able to get a bed without significant discomfort in her back. I do believe that she would be a high fall risk upon going home at the present time noting her discomfort. I do believe that further evaluation and management in the inpatient setting is warranted. Case discussed with the hospitalist. Please refer to further documentation regarding her stay GCS: 15 In the evaluation and treatment of this patient the following differential diagnosis entertained: Fracture, dislocation, subluxation, cauda equina syndrome, AAA, diverticulitis, appendicitis, torsion, osteomyelitis, piriformis syndrome, strain, sprain, among others. Impression & Plan Fall due to ice or snow, Back pain, Abdominal pain, Fracture of thoracic spine Discharge Plan Visit Data Chief Complaint: Fall Stated Complaint: FALL,LEFT SIDE AND HIP PAIN ED Provider: Damon Allen ED Midlevel Provider: Chente Cast Discharge Problem: Fall due to ice or snow, Back pain, Abdominal pain, Fracture of thoracic spine Patient Disposition: Admitted As Inpatient Condition: Good Forms Stand Alone Forms: [facility] Prescriptions Prescriptions: No Action turmeric 400 mg Capsule 800 mg PO QAM RF: 0 levothyroxine [Synthroid] 50 mcg Tablet 50 mcg PO DAILYBB RF: 0 hydrochlorothiazide 12.5 mg Capsule 12.5 mg PO HS RF: 0 vitamin B complex [B Complex-Vitamin B12] Tablet 1 tab PO QAM PRN (Reason: TAKE WHEN NEEDED) RF: 0 omega 4-uft-lya-fish oil [Fish Oil] 1,000 mg (120 mg-180 mg) Capsule 1 cap PO BID RF: 0 multivitamin [Daily Multi-Vitamin] Tablet 1 tab PO QAM RF: 0 losartan [Cozaar] 100 mg Tablet 100 mg PO HS RF: 0 Ocuvite Adult 50 Plus 250-5-1 mg Capsule 1 cap PO QAM RF: 0 magnesium oxide 400 mg magnesium Capsule 400 mg PO BID RF: 0 Cbd Chewable Tablet 1 tab PO DIRECTED PRN (Reason: NEEDED) RF: 0 diclofenac sodium [Voltaren Arthritis Pain] 1 % gel 0.5 g TOPICAL QID PRN (Reason: Pain) RF: 0 Referrals Referrals: Librado Barajas [Primary Care Provider] -
--- NOTE | 2021-06-03 15:37 | CT Scan Report ---
CT SCAN OF THE BRAIN WITHOUT IV CONTRAST CLINICAL HISTORY: Fall. COMPARISON STUDY: No priors. TECHNIQUE: Unenhanced axial CT scan of the brain is performed from the vertex to the skull base. A do se lowering technique was utilized adhering to the principles of ALARA. FINDINGS: Brain parenchyma: There are age-related involutional changes noting minimal microangiopathic disease . There is no hemorrhage, mass effect, or evidence of acute territorial ischemia by CT criteria. Stevenson -white matter differentiation is preserved. No extra-axial fluid collection is seen. Ventricles, sulci, cisterns: Prominent secondary to involutional change. Intracranial vasculature: There is mild atherosclerotic calcification of the cavernous carotid arteri es. Calvarium: The skeletal structures are osteopenic. There is no depressed calvarial fracture. Sinuses and mastoids: The visualized paranasal sinuses are clear. The mastoid air cells are well pneu matized. Orbits: The bony orbits are grossly intact. There are bilateral ocular lens implants. IMPRESSION: There is no hemorrhage, mass effect, or evidence of acute territorial ischemia by CT grayson montejo. ACT 112: Negative or not required by law. Electronically signed by: Mic Marshall M.D. 06/03/2021 3:36 PM
--- NOTE | 2021-06-03 15:42 | CT Scan Report ---
CT SCAN OF THE CERVICAL SPINE CLINICAL HISTORY: Trauma. Fall. COMPARISON STUDY: No priors. TECHNIQUE: CT scan of the cervical spine is performed from the skull base to the upper thoracic spine . Images are reviewed in the axial, sagittal, and coronal planes. IV contrast was not administered fo r this examination. A dose lowering technique was utilized adhering to the principles of ALARA. FINDINGS: Skeletal structures: The skeletal structures are ostiomeatal. There is no evidence of fracture or sub luxation involving the cervical spine. Vertebral body height and alignment are maintained. There is m ild straightening of the cervical lordosis. The odontoid process and lateral masses are intact. The a tlantoaxial articulation is preserved noting productive degenerative change. There is minimal multile barbara facet arthropathy. The spinous processes appear intact. Intervertebral discs: There is only minimal degenerative disc space narrowing. Central canal: Posterior disc osteophyte complexes at C3-C4, C4-C5, and C5-C6 likely contribute to ac quired compromise of the central canal. Soft tissues: The prevertebral and paraspinous soft tissues are within normal limits. Calvarium: The visualized calvarium at the skull base appears intact. Brain parenchyma: Partially visualized brain parenchyma at the skull base is within normal limits. Sinuses and mastoids: Retention cyst is partially visualized in the right maxillary antrum. The masto id air cells are well pneumatized. Lung apices: Parenchyma scarring is noted at the apices. Upper lobe lung parenchyma is otherwise juanjo r as visualized. IMPRESSION: 1. There is no evidence of fracture or subluxation involving the cervical spine. 2. Osteopenia and spondylotic change as above. ACT 112: Negative or not required by law. Electronically signed by: Mic Marshall M.D. 06/03/2021 3:40 PM
--- NOTE | 2021-06-03 16:01 | CT Scan Report ---
CT SCAN OF THE CHEST, ABDOMEN, AND PELVIS WITH IV CONTRAST; CT SCAN OF THE THORACIC SPINE WITH IV CON TRAST; CT SCAN OF THE LUMBAR SPINE WITH IV CONTRAST CLINICAL HISTORY: Fall several days ago. COMPARISON STUDY: CT scan of the chest, abdomen, and pelvis dated 03/07/2021. Lumbar spine radiograp hs dated 05/31/2021. TECHNIQUE: Following the IV administration of 91 of Optiray 320, CT scan of the chest, abdomen, and p wendi was performed from the thoracic inlet to the proximal femora. Additionally, CT scan of the thor acic spine is performed from the lower cervical spine to the upper lumbar spine and CT scan of the jeanette mbar spine is performed from the lower thoracic spine to the sacrum. Images for these examinations ar e reviewed in the axial, sagittal, and coronal planes. IV contrast was administered without complicat ion. A dose lowering technique was utilized adhering to the principles of ALARA. CT DOSE: 1962.62 mGy.cm FINDINGS: CHEST: Thyroid: Imaged portions of the thyroid gland are normal in size and attenuation. Thoracic aorta: There is atherosclerotic calcification of the thoracic aorta, which is normal in aliyah stephanie and demonstrates bowel: There arch anatomy. No dissection is seen. Pulmonary vasculature: The pulmonary trunk is normal in caliber. There are no filling defects identif ied in the central pulmonary vessels to indicate pulmonary embolus. Note that this examination was no t protocoled for evaluation of the pulmonary arteries. Heart: The heart is mildly enlarged and without pericardial effusion. There are scattered coronary ar susana calcifications. Lungs and pleural spaces: Subpleural reticulation and mild groundglass change is seen throughout both lungs with a lower lobe predominance. This suggests chronic interstitial lung disease. Apical fibros is is observed. There is no airspace consolidation typical for pneumonia, pleural effusion, or pneumo thorax. An indeterminant 9 mm pulmonary nodule in the left upper lobe is seen on image #80 and a 6 mm pleural-based nodule in the right middle lobe is seen on image #186. There are scattered calcified g ranulomas. The trachea and central airways are clear. Mediastinum: Prominent mediastinal lymph nodes measuring up to 11 mm in short axis are unchanged. The re is no mediastinal hematoma. Karyna: Clear. Axillae: There is no axillary lymphadenopathy. Bony thorax: The skeletal structures are osteopenic. There subacute to chronic bilateral rib fracture s. No acute rib fracture is identified. See below for dedicated assessment of the thoracic spine. No lytic or blastic lesions are identified. THORACIC SPINE: There is a mild acute superior endplate compression fracture of T11. No retropulsed f ragments are identified. Vertebral body height is otherwise maintained at the thoracic spine. Alignme nt is preserved. Small anterior osteophytes are seen throughout. The transverse and spinous processes are intact. The disc spaces are preserved. There is no evidence of large disc herniation or high-gra de central canal stenosis by CT. The paraspinous soft tissues are normal in appearance. ABDOMEN AND PELVIS: Liver: The contrast-enhanced liver is normal in size, contour, and attenuation. There is no intrahepa tic biliary ductal dilatation. The hepatic veins and portal veins are patent. Calcified granulomas ar e noted in the inferior right lobe. Gallbladder: Unremarkable. Spleen: Normal in size and attenuation. Pancreas: Unremarkable. Adrenal glands: Unremarkable. Kidneys: The contrast enhanced kidneys demonstrate mild cortical atrophy and are without hydronephros is. The kidneys enhance symmetrically. Abdominal vasculature: The abdominal aorta is normal in course and caliber noting mild to moderate at herosclerotic calcification. Bowel: Mild to moderate fecal retention is seen throughout the colon. No bowel obstruction is identif ied. The appendix is well-visualized and normal. Peritoneum: There is no intraperitoneal free air or abdominal ascites. There is a small fat-containin g umbilical hernia. Lymphadenopathy: None. Pelvic viscera: The bladder, uterus, and adnexa are normal as visualized. Skeletal structures: The skeletal structures are osteopenic. The bony pelvis and proximal femora appe ar intact. See below for dedicated assessment of the lumbar spine. No lytic or blastic lesions are se en. LUMBAR SPINE: Vertebral body height is maintained throughout the lumbar spine. There is no evidence o f acute fracture or malalignment. The transverse and spinous processes are intact. There is no eviden ce of spondylolysis. There is moderate disc space narrowing at L4-L5. Mild disc space narrowing is se en at the remaining lumbar levels. Disc bulges are noted at L3-L4 and L5-S1. There is minimal anterol isthesis at L4-L5. Alignment is otherwise preserved. Anterior and lateral marginal osteophytes are se en throughout. Facet arthropathy is noted in the lower lumbar region. Postlaminectomy change is noted at L4. The paraspinous soft tissues are within normal limits. IMPRESSION: 1. There is no airspace consolidation, pleural effusion, or pneumothorax. 2. There is a mild acute superior endplate compression fracture of T11. No retropulsed fragments are identified. 3. No additional fracture is seen involving the thoracic spine. 4. There is no evidence of fracture or malalignment involving the lumbar spine. 5. There is no evidence of solid organ injury in the abdomen or pelvis. 6. Chronic parenchymal pulmonary findings and subcentimeter pulmonary nodules as above. This has not appreciably changed as compared to the 03/07/[address] 7. Mild cardiomegaly. 8. Additional findings as above. ACT 112: Negative or not required by law. Electronically signed by: Mic Marshall M.D. 06/03/2021 3:59 PM
[2021-06-03] MEDS ORDERED: MoRPHine SULFATE 2 MG/ML CARP IV STA (16:27)
[2021-06-03] MEDS ORDERED: ONDANSETRON INJ 2 MG/ML 2 ML VIAL IV STA (16:27)
--- NOTE | 2021-06-03 16:47 | History & Physical Report ---
Date of Service June 03, 2021 Assessment & Plan (1) Fall due to ice or snow: Plan: Patient had a fall while walking at home on her concrete pavers when she slippled on ice and fell on her back. This occured on the . Pain has remained, will admit under observation for pain control. Place on tylenol scheduled and diclofenac topical. Will also place on calcitonin spray will cosnult PT/OT (2) Back pain: Plan: state above. (3) Fracture of thoracic spine: Plan: Acute sotreoporotic fracture of thoracic spine of T11. History of Present Illness Chief Complaint: lower thoracic back pain Primary Care Provider: Librado Barajas 85 yo female with PMH described below is coming to the ER after sustaining a fall on . Patient reports that she has severe pain in her lower thoracic back. Patien reports having a mechanical fall on May 25 while walking on her cement pavers. She said she slipped and fell on her back. Since then she has had severe pain in the lower portion of her thoracic back. Patient has followed with he PCP who order c rays which did not show a fracture. She continued to have pain and today was unable to get out of bed. Imaging showed: There is a mild acute superior endplate compression fracture of T11 Allergies Allergy/AdvReac Type Severity Reaction Status Date / Time diphtheria toxoid,fluid Allergy Intermediate LOCAL Verified 06/03/21 15:00 REDNESS AND SWELLING lactose Allergy Intermediate GI UPSET Verified 06/03/21 15:00 milk Allergy Intermediate GI UPSET Verified 06/03/21 15:00 tetanus toxoid, adsorbed Allergy Intermediate LOCAL Verified 06/03/21 15:00 REDNESS AND SWELLING latex Allergy Mild REDNESS, Verified 06/03/21 15:00 RASH alendronate sodium Allergy Unknown PT DOES Verified 06/03/21 15:00 NOT REMEMBER REACTION diltiazem Allergy Unknown PT DOES Verified 06/03/21 15:00 NOT REMEMBER REACTION lisinopril Allergy Unknown PT DOES Verified 06/03/21 15:00 NOT REMEMBER REACTION Sulfa (Sulfonamide Allergy Unknown PT DOES Verified 06/03/21 15:00 Antibiotics) NOT REMEMBER REACTION adhesive AdvReac Intermediate RED SKIN Verified 06/03/21 15:00 W/ BLISTERS FROM BANDAIDS amoxicillin AdvReac Intermediate MUSCLE Verified 06/03/21 15:00 WEAKNESS Home Medications Medication Instructions Recorded Confirmed Type hydrochlorothiazide 12.5 mg capsule 12.5 mg PO HS 07/14/19 06/03/21 History levothyroxine 50 mcg tablet 50 mcg PO DAILYBB 07/14/19 06/03/21 History (Synthroid) losartan 100 mg tablet (Cozaar) 100 mg PO HS 07/14/19 06/03/21 History magnesium oxide 400 mg PO BID 07/14/19 06/03/21 History multivitamin (Daily Multi-Vitamin) 1 tab PO QAM 07/14/19 06/03/21 History omega 3-gfm-wxk-fish oil 1,000 mg 1 cap PO BID 07/14/19 06/03/21 History (120 mg-180 mg) capsule (Fish Oil) vit C,E,zinc,copper-pczko9p 250 1 cap PO QAM 07/14/19 06/03/21 History mg-lutein 5 mg-zeaxanthin 1 mg capsule (Ocuvite Adult 50 Plus) vitamin B complex (B 1 tab PO QAM PRN 07/14/19 06/03/21 History Complex-Vitamin B12) turmeric 400 mg capsule 800 mg PO QAM 12/10/19 06/03/21 History diclofenac sodium 1 % topical gel 0.5 g TOPICAL QID PRN 12/04/20 06/03/21 History (Voltaren Arthritis Pain) Cbd Chewable Tablet 1 tab PO DIRECTED PRN 03/07/21 06/03/21 History Past Med/Surg History Medical History Arthritis GERD (gastroesophageal reflux disease) Hypertension Hypothyroidism Osteoporosis Prediabetes Surgical History History of colonoscopy History of total knee replacement R/L S/P epidural steroid injection Family History Sister Family history of diabetes mellitus Social History Smoking Status: Never smoker Second Hand Exposure: No; Do You Dip or Chew Tobacco: No; Tobacco Cessation Education Requested by Patient: No Hx Alcohol Use: No Hx Substance Use: No Preferred Language: Libyan Communication Ability: Effective Manager Vehicle Required: No Beliefs That Will Affect Care: Jehovah'S Witness Jehovah'S Witness Beliefs: Patient is a Spiritism. Current Living Situation: Family Current Living Situation Comment: Lives with Son. Other Information That Helps Us Care for You: No Feels Safe at Home: Yes Safety Concerns: Feels Safe At This Time Assistive Devices: Glasses Review of Systems Constitutional: no fever, no body aches and no weakness Eyes: no blind spots and no discharge Ear, Nose, Mouth, Throat: no ear pain and no ear trauma Respiratory: no cough and no dyspnea Cardiovascular: no chest pain and no radiating jaw, neck or arm pain Gastrointestinal: no abdominal pain and no bloating Genitourinary: no dysuria and no urinary frequency Musculoskeletal: + back pain Integumentary: no rash Neurologic: no gait abnormality Psychiatric: no behavioral changes Hematologic / Lymphatic: no easy bleeding Physical Exam Constitutional: + acute distress (appears uncomfortable, lying flat in bed due to pain.) Eyes: PERRL, conjunctivae normal, anicteric sclerae ENMT: external ear and nose normal, oropharynx normal Neck: trachea midline, no thyromegaly Respiratory: normal respiratory effort, lungs clear to auscultation Cardiovascular: RRR, no murmur, no edema Gastrointestinal (Abdomen): normal bowel sounds, soft, nontender, no hepatosplenomegaly Musculoskeletal: no cyanosis or clubbing, extremities motor strength 5/5 Skin: no rashes, warm and dry Neurologic: PERRL, EOMI, accommodation nl, no face palsy, no dysarthria Psychiatric: A+Ox3, euthymic affect Lymphatic: no cervical or axillary lymphadenopathy Results & Data Results & Data ([facility]) Vital Signs (Past 12 Hours) Vital Signs Temp Pulse Pulse Resp BP BP Pulse Ox 06/03/21 15:16 90 18 184/76 H 98 06/03/21 13:19 36.3 C L 64 18 187/82 H 98 PG Care Time/CCT Total # of Minutes Spent Total Time Spent with Patient: Total time spent is greater than 50% in coordination of care (as documented) at patient's floor/unit and/or counseling patient: Coding Level of Care Code INT OBSERVATION CARE 70M LVL 3 Diagnoses Fall due to ice or snow W00.9XXA Back pain M54.9 Fracture of thoracic spine S22.009A
[2021-06-03] MEDS ORDERED: VITAMIN B COMPLEX PO PRN (16:52)
[2021-06-03] MEDS ORDERED: CBD PO PRN (16:52)
[2021-06-03] MEDS: ACETAMINOPHEN 325 MG TAB PO SCH ×2 (21:34→23:38)
[2021-06-03] MEDS: CALCITONIN SALMON NA 200 IU/AC 3.7 ML BTL SCH (21:36)
[2021-06-03] MEDS: OMEGA-3 (PURIFIED FISH OIL) 1 GM CAP PO SCH (21:37)
[2021-06-03] MEDS: hydroCHLOROthiazide 25 MG TAB PO SCH (21:38)
[2021-06-03] MEDS: LOSARTAN POTASSIUM 50 MG TAB PO SCH (21:38)
[2021-06-03] MEDS: MAGNESIUM OXIDE 400 MG TAB PO SCH (21:39)
[2021-06-03] MEDS ORDERED: ENOXAPARIN INJ 40 MG/0.4 ML SYR SQ ONE (23:00)
[2021-06-04 01:14] LABS: Appearance Urine Clear (Clear); Bacteria Urine Automated Negative (Negative); Bilirubin Urine Negative (Negative); Blood Urine Negative (Negative); Color Urine Yellow; Epithelial Cell Urine Auto 20-30 /lpf (0-5); Glucose Urine UA Negative (Negative); Ketones Urine Negative (Negative); Leukocyte Esterase Urine Trace (Negative); Nitrite Urine Negative (Negative); Protein Urine Negative (Negative); RBC Urine Automated 0-4 /hpf (0-4); Urobilinogen Urine Negative (Negative); pH Urine 7.5 (4.5-7.5)
[2021-06-04] MEDS: LEVOTHYROXINE SODIUM 50 MCG TABLET PO SCH (05:36)
[2021-06-04] MEDS: ACETAMINOPHEN 325 MG TAB PO SCH ×4 (05:36→23:14)
[2021-06-04] MEDS: LIDOCAINE 5% 1 PATCH TD SCH (08:16)
[2021-06-04] MEDS ORDERED: MULTIVITAMIN PO SCH (09:00)
[2021-06-04] MEDS ORDERED: NON-FORMULARY MEDICATION (Turmeric 400 mg Capsule) PO SCH (09:00)
[2021-06-04] MEDS: DOCUSATE SODIUM/SENNA 50/8.6MG TAB PO SCH (09:27)
[2021-06-04] MEDS: OMEGA-3 (PURIFIED FISH OIL) 1 GM CAP PO SCH ×2 (09:27→20:38)
[2021-06-04] MEDS: CEROVITE ADV FORMULA TAB PO SCH (09:28)
[2021-06-04] MEDS: MAGNESIUM OXIDE 400 MG TAB PO SCH ×2 (09:28→20:39)
--- NOTE | 2021-06-04 12:03 | Orthopedic Consultation ---
Date of Consultation June 04, 2021 Assessment & Plan (1) Fracture of thoracic spine: Assessment T11 compression fracture. Plan at this time this patient does have a longstanding history of lumbar spinal stenosis. An MRI from October 2019 does demonstrate severe stenosis L3-L4 followed by L4-L5. This may contribute to some strength deficits and predisposition to falls. I will update an MRI lumbar spine to include the T11 vertebral body. This will allow us to evaluate for the advancement of his spinal stenosis as well as better anatomy for the T11 vertebral fracture. By further conditions upon review. History of Present Illness Reason for Consultation: Back pain Attending Physician: Agueda Johnson MD History of Present Illness This is a very pleasant 85-year-old female who presents with worsening thoracolumbar back pain. She has had a history of falls over the past several years and most recent of which was on May 25. This did occur at home. She slipped on the ice. She does have intermittent numbness and tingling in her legs and well as leg pain. She has been struggling with this for many years. It has become more limiting in nature. Allergies Allergy/AdvReac Type Severity Reaction Status Date / Time diphtheria toxoid,fluid Allergy Intermediate LOCAL Verified 06/03/21 15:00 REDNESS AND SWELLING lactose Allergy Intermediate GI UPSET Verified 06/03/21 15:00 milk Allergy Intermediate GI UPSET Verified 06/03/21 15:00 tetanus toxoid, adsorbed Allergy Intermediate LOCAL Verified 06/03/21 15:00 REDNESS AND SWELLING latex Allergy Mild REDNESS, Verified 06/03/21 15:00 RASH alendronate sodium Allergy Unknown PT DOES Verified 06/03/21 15:00 NOT REMEMBER REACTION diltiazem Allergy Unknown PT DOES Verified 06/03/21 15:00 NOT REMEMBER REACTION lisinopril Allergy Unknown PT DOES Verified 06/03/21 15:00 NOT REMEMBER REACTION Sulfa (Sulfonamide Allergy Unknown PT DOES Verified 06/03/21 15:00 Antibiotics) NOT REMEMBER REACTION adhesive AdvReac Intermediate RED SKIN Verified 06/03/21 15:00 W/ BLISTERS FROM BANDAIDS amoxicillin AdvReac Intermediate MUSCLE Verified 06/03/21 15:00 WEAKNESS Home Medications Medication Instructions Recorded Confirmed Type hydrochlorothiazide 12.5 mg capsule 12.5 mg PO HS 07/14/19 06/03/21 History levothyroxine 50 mcg tablet 50 mcg PO DAILYBB 07/14/19 06/03/21 History (Synthroid) losartan 100 mg tablet (Cozaar) 100 mg PO HS 07/14/19 06/03/21 History magnesium oxide 400 mg PO BID 07/14/19 06/03/21 History multivitamin (Daily Multi-Vitamin) 1 tab PO QAM 07/14/19 06/03/21 History omega 6-ukt-yow-fish oil 1,000 mg 1 cap PO BID 07/14/19 06/03/21 History (120 mg-180 mg) capsule (Fish Oil) vit C,E,zinc,copper-psuad4j 250 1 cap PO QAM 07/14/19 06/03/21 History mg-lutein 5 mg-zeaxanthin 1 mg capsule (Ocuvite Adult 50 Plus) vitamin B complex (B 1 tab PO QAM PRN 07/14/19 06/03/21 History Complex-Vitamin B12) turmeric 400 mg capsule 800 mg PO QAM 12/10/19 06/03/21 History diclofenac sodium 1 % topical gel 0.5 g TOPICAL QID PRN 12/04/20 06/03/21 History (Voltaren Arthritis Pain) Cbd Chewable Tablet 1 tab PO DIRECTED PRN 03/07/21 06/03/21 History Patient History Medical History Arthritis GERD (gastroesophageal reflux disease) Hypertension Hypothyroidism Osteoporosis Prediabetes Surgical History History of colonoscopy History of total knee replacement R/L S/P epidural steroid injection Family History Sister Family history of diabetes mellitus Social History Smoking Status: Never smoker Second Hand Exposure: No; Do You Dip or Chew Tobacco: No; Tobacco Cessation Education Requested by Patient: No Hx Alcohol Use: No Hx Substance Use: No Preferred Language: Egyptian Communication Ability: Effective Investigation Division Captain Required: No Beliefs That Will Affect Care: Jew Jew Beliefs: Patient is a Pentecostal. Current Living Situation: Family Current Living Situation Comment: Lives with Son. Other Information That Helps Us Care for You: No Feels Safe at Home: Yes Safety Concerns: Feels Safe At This Time Assistive Devices: Glasses Physical Exam Physical Exam: On exam she is in bed. She is cooperative. She seems to have reasonable plantar flexion dorsiflexion quadriceps bilaterally. Sensory is intact. Results & Data ([facility]) Vital Signs (Past 12 Hours) Vital Signs Temp Pulse Resp BP Pulse Ox 06/04/21 09:25 58 L 109/55 L 06/04/21 07:34 36.5 C 54 L 14 96/52 L 97 06/04/21 00:30 36.7 C 63 16 107/65 96
--- NOTE | 2021-06-04 13:36 | Hospitalist Progress Note ---
Date of Service June 04, 2021 Assessment & Plan (1) Fracture of thoracic spine: Plan: Patient sustained a T11 compression fracture following a mechanical fall at home. Repeat MRI has been ordered by spine surgery Continue pain management, await MRI appreciate spine surgery recs (2) Fall due to ice or snow: Plan: Fell when she slipped on ice at home (3) HTN (hypertension): Plan: BP 109/55 Initial spike in BP could have been due to pain patient has not taken any BP meds in 40 years will monitor her for now Admission and Anticipated Discharge Date Admission Date: June 03, 2021 Subjective Patient seen and examined this morning, states that back pain is much improved however says she has not moved more so unable to fully assess Review of Systems Review of Systems: All systems reviewed are negative, apart from the ones contained in the history. Physical Exam Physical Exam: The patient is awake, alert and oriented 3, well developed and well nourished, normocephalic and atraumatic, lying in bed and in no acute distress. HEENT--PERRL, EOMI, mucous membranes and oropharynx mildly dry Neck--supple. No JVD. No bruits. Thyroid normal, trachea midline, no adenopathy. Heart--normal S1 and S2. No murmurs, rubs or gallops. Lungs--clear bilaterally, no respiratory distress, no accessory muscle use. Abdomen--normal bowel sounds and soft. Extremities--no cyanosis or clubbing. No edema. Dermatologic--normal skin turgor, normal color, no abnormal lymph nodes, no rash. Neurologic--cranial nerves II through XII grossly intact. Rheumatologic--normal range of motion. Psychiatric--normal affect. Results & Data Results & Data ([facility]) Vital Signs (Past 12 Hours) Vital Signs Temp Pulse Resp BP Pulse Ox 06/04/21 09:25 58 L 109/55 L 06/04/21 07:34 97.7 F 54 L 14 96/52 L 97 PG Care Time/CCT Total # of Minutes Spent Total Time Spent with Patient: Total time spent is greater than 50% in coordination of care (as documented) at patient's floor/unit and/or counseling patient: Coding Level of Care Code 72521 Subseq Hosp Care Lvl 2 Diagnoses Fracture of thoracic spine S22.009A Fall due to ice or snow W00.9XXA HTN (hypertension) I10 Time Spent (min) 35
--- NOTE | 2021-06-04 15:12 | Magnetic Resonance Report ---
MR lumbar spine wo con CLINICAL HISTORY: Please include a T11 vertebral body, for back pain TECHNIQUE: Multiplanar sequences through the lumbar spine were obtained, without intravenous contrast . Comparison: Comparison is made to CT abdomen pelvis 06/03/2021 FINDINGS: There is grade 1 anterolisthesis of L4-L5. Degenerative changes are noted in the discs and vertebral bodies. T11 vertebral body demonstrates mild bony edema compatible with mild compression fracture. L1-L2: Small posterior disc bulge is seen with mild canal stenosis. L2-L3: Facet arthropathy and moderate posterior disc bulge resulting in moderate canal stenosis. L3-L4: Facet arthropathy and moderate posterior disc bulge result in severe neural foraminal stenosis . Anterior posterior dimension of the spinal canal measures 8 mm. L4-L5: Minimal anterolisthesis and small posterior disc bulge without significant spinal canal stenos is. L5-S1: No significant abnormality. The spinal ligaments are intact, without evidence of disruption or abnormal signal intensity. The spi nal cord is normal in signal intensity and there is no evidence of cord contusion. There is no eviden ce of an extradural, intradural, extramedullary or intramedullary lesion. Visualized soft tissues are normal. IMPRESSION: 1. Edema in the T11 vertebral body compatible with acute to subacute compression fracture. 2. Multiple level degenerative changes with severe neuroforaminal stenosis at L3-L4, AP diameter of the spinal canal measures 8 mm. ACT 112: Negative or not required by law. Electronically signed by: Ugo Grady M.D. 06/04/2021 3:11 PM
[2021-06-04] MEDS: CALCITONIN SALMON NA 200 IU/AC 3.7 ML BTL SCH (17:55)
[2021-06-04] MEDS: ENOXAPARIN INJ 40 MG/0.4 ML SYR SQ SCH (20:37)
[2021-06-04] MEDS: hydroCHLOROthiazide 25 MG TAB PO SCH (20:38)
[2021-06-04] MEDS: LOSARTAN POTASSIUM 50 MG TAB PO SCH (20:39)
[2021-06-04] MEDS ORDERED: DICLOFENAC SOD 1% GEL 100 GM TUBE EXT PRN (22:42)
[2021-06-04] MEDS: TRIAMCINOLONE ACET 0.1% OINT 15 GM TUBE EXT PRN (23:12)
[2021-06-05] MEDS: MoRPHine SULFATE 2 MG/ML CARP IV PRN (01:37)
[2021-06-05] MEDS: LEVOTHYROXINE SODIUM 50 MCG TABLET PO SCH (05:54)
[2021-06-05] MEDS: ACETAMINOPHEN 325 MG TAB PO SCH ×3 (05:54→18:05)
[2021-06-05 06:04] LABS: Hematocrit (blood only) 37.4 % (37-47); Hemoglobin 12.8 g/dL (12.0-16.0); Mean Corpuscular Hemoglobin 32.7 pg (25-34); Mean Corpuscular Hgb Conc 34.2 g/dL (32-36); Mean Corpuscular Volume 95.4 fL (80-100); Mean Platelet Volume 9.8 fL (7.4-10.4); Platelet Count 181 K/uL (130-400); RDW Coefficient of Variation 12.4 % (11.5-14.5); RDW Standard Deviation 42.9 fL (36.4-46.3); Red Blood Count 3.92 M/uL (4.2-5.4); White Blood Count 4.78 K/uL (4.8-10.8)
[2021-06-05 07:12] LABS: BUN Creatinine Ratio 23.1 (10-20); Calcium 8.5 mg/dl (8.5-10.1); Creatinine Clr Calc Pharmacy 47.2 ml/min; Est GFR (African American) 80.3 ml/min; Est GFR (Non-African American) 69.3 ml/min; Potassium 3.5 mmol/L (3.5-5.1)
[2021-06-05] MEDS: DOCUSATE SODIUM/SENNA 50/8.6MG TAB PO SCH (07:55)
[2021-06-05] MEDS: MAGNESIUM OXIDE 400 MG TAB PO SCH ×2 (07:56→20:11)
[2021-06-05] MEDS: CEROVITE ADV FORMULA TAB PO SCH (07:56)
[2021-06-05] MEDS: OMEGA-3 (PURIFIED FISH OIL) 1 GM CAP PO SCH ×2 (07:56→20:09)
[2021-06-05] MEDS: LIDOCAINE 5% 1 PATCH TD SCH (07:57)
[2021-06-05] MEDS ORDERED: LIDOCAINE 5% 1 PATCH TD SCH (09:15)
--- NOTE | 2021-06-05 09:21 | Pain Management Consultation ---
Date of Consultation June 05, 2021 Assessment & Plan (1) Lumbar spinal stenosis: (2) Lumbago: 1. We discussed her T11 compression fracture and mechanism of injury. I reviewed her lumbar spine MRI in detail and reviewed the fact that her lumbar spinal stenosis has been chronic rather than acute. Recommend utilization of LSO versus TLSO support brace while up for comfort. Orders are written 2. In addition recommend utilization of Lidoderm patch and tramadol 50 mg p.o. every 8 as needed. Orders are written. Continue with senna decussate sodium. 2. Will confirm efficacy of above regimen tomorrow a.m. 3. There is no role for interventional pain management at this time. 4. Thank you very much for this consultation. History of Present Illness Attending Physician: Agueda Johnson MD History of Present Illness 85 year old female who sustained a fall on 05/25/21 and presented to the [facility] ER with increasing low back pain. She was diagnosed with an acute T11 compression fracture. She has utilized 1 mg of IV morphine for pain control. She reports pain at rest is 7 out of 10 range between 5 and 9 out of 10 with activity. She reports in addition to her acute flare of pain, chronic axial low back pain from L4-S1 with some right radicular symptoms intermittently. She reports she has not seen interventional pain management in the past for her lumbar spinal stenosis but has utilized iokc-emy-mourkfz analgesics such as BenGay or icy hot without sustained benefit. She denies any current bowel or bladder incontinence, motor weakness, footdrop, fever, chills, night sweats, saddle anesthesia. Pain Assessment Full Body Front + Back: 1. [facility] Combined Pain Scale: 7-Severe - Pain prevents productive activity. Impossible to tolerate. Pain scale - at its best (0-10): 5 Pain scale - at its worst (0-10): 9 Allergies Allergy/AdvReac Type Severity Reaction Status Date / Time diphtheria toxoid,fluid Allergy Intermediate LOCAL Verified 06/03/21 15:00 REDNESS AND SWELLING lactose Allergy Intermediate GI UPSET Verified 06/03/21 15:00 milk Allergy Intermediate GI UPSET Verified 06/03/21 15:00 tetanus toxoid, adsorbed Allergy Intermediate LOCAL Verified 06/03/21 15:00 REDNESS AND SWELLING latex Allergy Mild REDNESS, Verified 06/03/21 15:00 RASH alendronate sodium Allergy Unknown PT DOES Verified 06/03/21 15:00 NOT REMEMBER REACTION diltiazem Allergy Unknown PT DOES Verified 06/03/21 15:00 NOT REMEMBER REACTION lisinopril Allergy Unknown PT DOES Verified 06/03/21 15:00 NOT REMEMBER REACTION Sulfa (Sulfonamide Allergy Unknown PT DOES Verified 06/03/21 15:00 Antibiotics) NOT REMEMBER REACTION adhesive AdvReac Intermediate RED SKIN Verified 06/03/21 15:00 W/ BLISTERS FROM BANDAIDS amoxicillin AdvReac Intermediate MUSCLE Verified 06/03/21 15:00 WEAKNESS Home Medications Medication Instructions Recorded Confirmed Type hydrochlorothiazide 12.5 mg capsule 12.5 mg PO HS 07/14/19 06/03/21 History levothyroxine 50 mcg tablet 50 mcg PO DAILYBB 07/14/19 06/03/21 History (Synthroid) losartan 100 mg tablet (Cozaar) 100 mg PO HS 07/14/19 06/03/21 History magnesium oxide 400 mg PO BID 07/14/19 06/03/21 History multivitamin (Daily Multi-Vitamin) 1 tab PO QAM 07/14/19 06/03/21 History omega 1-izy-qvk-fish oil 1,000 mg 1 cap PO BID 07/14/19 06/03/21 History (120 mg-180 mg) capsule (Fish Oil) vit C,E,zinc,copper-zcomu6r 250 1 cap PO QAM 07/14/19 06/03/21 History mg-lutein 5 mg-zeaxanthin 1 mg capsule (Ocuvite Adult 50 Plus) vitamin B complex (B 1 tab PO QAM PRN 07/14/19 06/03/21 History Complex-Vitamin B12) turmeric 400 mg capsule 800 mg PO QAM 12/10/19 06/03/21 History diclofenac sodium 1 % topical gel 0.5 g TOPICAL QID PRN 12/04/20 06/03/21 History (Voltaren Arthritis Pain) Cbd Chewable Tablet 1 tab PO DIRECTED PRN 03/07/21 06/03/21 History Pain History Pain Intensity Pain scale - at its best (0-10): 5 Pain scale - at its worst (0-10): 9 Patient History Medical History (Updated 06/05/21 @ 09:33 by Lima Newman DO) Arthritis GERD (gastroesophageal reflux disease) Hypertension Hypothyroidism Lumbago Lumbar spinal stenosis Worst at L3-4 Osteoporosis Prediabetes Surgical History History of colonoscopy History of total knee replacement R/L S/P epidural steroid injection Family History Sister Family history of diabetes mellitus Social History Smoking Status: Never smoker Second Hand Exposure: No; Do You Dip or Chew Tobacco: No; Tobacco Cessation Education Requested by Patient: No Hx Alcohol Use: No Hx Substance Use: No Preferred Language: Serbian Communication Ability: Effective Neon Installer Required: No Beliefs That Will Affect Care: Hindu Hindu Beliefs: Patient is a Sabianism. Current Living Situation: Family Current Living Situation Comment: Lives with Son. Other Information That Helps Us Care for You: No Feels Safe at Home: Yes Safety Concerns: Feels Safe At This Time Assistive Devices: Glasses and Walker Physical Exam Physical Exam: Constitutional: Well-developed, well-nourished, healthy- appearing, normal weight, deconditioned Psych: Awake, alert, and oriented 3 with normal affect and mood. Recent memory appears grossly intact Eyes: Pupils are equally round and reactive to light with normal size pupils, eyelids appear normal Ear, nose, mouth, and throat: Moist nasal and oral membranes, lips and tongues appear normal, no external ear abnormalities are noted Neck: The trachea is midline without deviation and no thyromegaly is noted Respiratory: Normal respiratory effort without distress, no audible wheezes or rhonchi CV: Normal S1 and S2 Chest: Deferred GI/abdomen: Non-tender without guarding, soft Musculoskeletal: Head is normocephalic and atraumatic, gait not observed but patient is able to logroll in bed with mild difficulty. Cervical: Strength: Strength is grossly equal bilaterally with 5 out of 5 strength in all planes Thoracolumbar: Kyphotic/lordotic curve: Normal Range of motion is decreased in all planes Tenderness: Moderately tender over the axial midline from approximately T10-S1 Straight leg raise: Negative bilaterally Strength: Strength is equal bilaterally with 5 out of 5 strength in all planes Sensation of lower extremities: Intact bilaterally Myofascial spasm: Mild thoracolumbar spasm. No discrete trigger points noted Pathologic reflexes noted: None Skin: No rashes, lesions, ulcers, or induration noted Neuro: No nystagmus noted, the tongue is midline, the patient is able to rotate their head bilaterally : Deferred Results (Pain Clinic) Diagnostic Review MRI: non enhanced, reports reviewed, images reviewed and findings discussed with patient MRI Findings: 06/04/21 MR lumbar spine wo con CLINICAL HISTORY: Please include a T11 vertebral body, for back pain TECHNIQUE: Multiplanar sequences through the lumbar spine were obtained, without intravenous contrast. Comparison: Comparison is made to CT abdomen pelvis 06/03/2021 FINDINGS: There is grade 1 anterolisthesis of L4-L5. Degenerative changes are noted in the discs and vertebral bodies. T11 vertebral body demonstrates mild bony edema compatible with mild compression fracture. L1-L2: Small posterior disc bulge is seen with mild canal stenosis. L2-L3: Facet arthropathy and moderate posterior disc bulge resulting in moderate canal stenosis. L3-L4: Facet arthropathy and moderate posterior disc bulge result in severe neural foraminal stenosis. Anterior posterior dimension of the spinal canal measures 8 mm. L4-L5: Minimal anterolisthesis and small posterior disc bulge without significant spinal canal stenosis. L5-S1: No significant abnormality. The spinal ligaments are intact, without evidence of disruption or abnormal signal intensity. The spinal cord is normal in signal intensity and there is no evidence of cord contusion. There is no evidence of an extradural, intradural, extramedullary or intramedullary lesion. Visualized soft tissues are normal. IMPRESSION: 1. Edema in the T11 vertebral body compatible with acute to subacute compression fracture. 2. Multiple level degenerative changes with severe neuroforaminal stenosis at L3-L4, AP diameter of the spinal canal measures [address]: non enhanced, reports reviewed and findings discussed with patient CT Findings: 06/03/21 CT SCAN OF THE CHEST, ABDOMEN, AND PELVIS WITH IV CONTRAST; CT SCAN OF THE THORACIC SPINE WITH IV CONTRAST; CT SCAN OF THE LUMBAR SPINE WITH IV CONTRAST CLINICAL HISTORY: Fall several days ago. COMPARISON STUDY: CT scan of the chest, abdomen, and pelvis dated 03/07/2021. Lumbar spine radiographs dated 05/31/2021. TECHNIQUE: Following the IV administration of 91 of Optiray 320, CT scan of the chest, abdomen, and pelvis was performed from the thoracic inlet to the proximal femora. Additionally, CT scan of the thoracic spine is performed from the lower cervical spine to the upper lumbar spine and CT scan of the lumbar spine is performed from the lower thoracic spine to the sacrum. Images for these examinations are reviewed in the axial, sagittal, and coronal planes. IV contrast was administered without complication. A dose lowering technique was utilized adhering to the principles of ALARA. CT DOSE: 1962.62 mGy.cm FINDINGS: CHEST: Thyroid: Imaged portions of the thyroid gland are normal in size and attenuation. Thoracic aorta: There is atherosclerotic calcification of the thoracic aorta, which is normal in caliber and demonstrates bowel: There arch anatomy. No dissection is seen. Pulmonary vasculature: The pulmonary trunk is normal in caliber. There are no filling defects identified in the central pulmonary vessels to indicate pulmonary embolus. Note that this examination was not protocoled for evaluation of the pulmonary arteries. Heart: The heart is mildly enlarged and without pericardial effusion. There are scattered coronary artery calcifications. Lungs and pleural spaces: Subpleural reticulation and mild groundglass change is seen throughout both lungs with a lower lobe predominance. This suggests chronic interstitial lung disease. Apical fibrosis is observed. There is no airspace consolidation typical for pneumonia, pleural effusion, or pneumothorax. An indeterminant 9 mm pulmonary nodule in the left upper lobe is seen on image #80 and a 6 mm pleural-based nodule in the right middle lobe is seen on image #186. There are scattered calcified granulomas. The trachea and central airways are clear. Mediastinum: Prominent mediastinal lymph nodes measuring up to 11 mm in short axis are unchanged. There is no mediastinal hematoma. Karyna: Clear. Axillae: There is no axillary lymphadenopathy. Bony thorax: The skeletal structures are osteopenic. There subacute to chronic bilateral rib fractures. No acute rib fracture is identified. See below for ded icated assessment of the thoracic spine. No lytic or blastic lesions are identified. THORACIC SPINE: There is a mild acute superior endplate compression fracture of T11. No retropulsed fragments are identified. Vertebral body height is otherwise maintained at the thoracic spine. Alignment is preserved. Small anterior osteophytes are seen throughout. The transverse and spinous processes are intact . The disc spaces are preserved. There is no evidence of large disc herniation or high-grade central canal stenosis by CT. The paraspinous soft tissues are normal in appearance. ABDOMEN AND PELVIS: Liver: The contrast-enhanced liver is normal in size, contour, and attenuation. There is no intrahepatic biliary ductal dilatation. The hepatic veins and portal veins are patent. Calcified granulomas are noted in the inferior right lobe. Gallbladder: Unremarkable. Spleen: Normal in size and attenuation. Pancreas: Unremarkable. Adrenal glands: Unremarkable. Kidneys: The contrast enhanced kidneys demonstrate mild cortical atrophy and are without hydronephrosis. The kidneys enhance symmetrically. Abdominal vasculature: The abdominal aorta is normal in course and caliber noting mild to moderate atherosclerotic calcification. Bowel: Mild to moderate fecal retention is seen throughout the colon. No bowel obstruction is identified. The appendix is well-visualized and normal. Peritoneum: There is no intraperitoneal free air or abdominal ascites. There is a small fat-containing umbilical hernia. Lymphadenopathy: None. Pelvic viscera: The bladder, uterus, and adnexa are normal as visualized. Skeletal structures: The skeletal structures are osteopenic. The bony pelvis and proximal femora appear intact. See below for dedicated assessment of the lumbar spine. No lytic or blastic lesions are seen. LUMBAR SPINE: Vertebral body height is maintained throughout the lumbar spine. There is no evidence of acute fracture or malalignment. The transverse and spinous processes are intact. There is no evidence of spondylolysis. There is moderate disc space narrowing at L4-L5. Mild disc space narrowing is seen at the remaining lumbar levels. Disc bulges are noted at L3-L4 and L5-S1. There is minimal anterolisthesis at L4-L5. Alignment is otherwise preserved. Anterior and lateral marginal osteophytes are seen throughout. Facet arthropathy is noted in the lower lumbar region. Postlaminectomy change is noted at L4. The paraspinous soft tissues are within normal limits. IMPRESSION: 1. There is no airspace consolidation, pleural effusion, or pneumothorax. 2. There is a mild acute superior endplate compression fracture of T11. No retropulsed fragments are identified. 3. No additional fracture is seen involving the thoracic spine. 4. There is no evidence of fracture or malalignment involving the lumbar spine. 5. There is no evidence of solid organ injury in the abdomen or pelvis. 6. Chronic parenchymal pulmonary findings and subcentimeter pulmonary nodules as above. This has not appreciably changed as compared to the 03/07/[address] 7. Mild cardiomegaly. 8. Additional findings as above.
[2021-06-05] MEDS: POLYETHYLENE (MIRALAX) 17 GM PACK PO PRN (11:39)
[2021-06-05] MEDS: CHOLECALCIFEROL 1,000 UNITS 25 MCG TAB PO SCH (11:39)
--- NOTE | 2021-06-05 13:05 | Orthopedic Progress Note ---
Date of Service June 05, 2021 Assessment & Plan (1) Fracture of thoracic spine: Plan: At this time we will attempt a trial of ambulation and transfers with a TLSO brace. If this controls her pain we we will hopefully be able to treat this nonoperatively. If however her back pain becomes consistent and limiting nature we may consider kyphoplasty of T11. We have acknowledged the lower extent lumbar spinal stenosis but she would like to continue with observation only regarding this issue. Admission and Anticipated Discharge Date Admission Date: June 03, 2021 Subjective Patient still complaining mostly of back pain. She does note her pre-existing leg pain is somewhat improved at bedrest. Physical Exam Physical Exam: On exam she is able to logroll with reasonable comfort.. She has good strength testing lower extremities. Results & Data ([facility]) Vital Signs (Past 12 Hours) Vital Signs Temp Pulse Resp BP Pulse Ox 06/05/21 07:12 36.3 C L 55 L 12 146/61 H 94
--- NOTE | 2021-06-05 14:42 | Hospitalist Progress Note ---
Date of Service June 05, 2021 Assessment & Plan (1) Fracture of thoracic spine: Plan: Patient sustained a T11 compression fracture following a mechanical fall at home. Repeat MRI confirms T11 compression fx, with some surrounding area edema Plan is for TSLO brace for now Continue pain management, if pain doesnt get better, kyphoplasty may be an option appreciate spine surgery recs (2) Fall due to ice or snow: Plan: Fell when she slipped on ice at home (3) HTN (hypertension): Plan: BP146/61 today Admission and Anticipated Discharge Date Admission Date: June 03, 2021 Subjective Patient still complaining mostly of back pain. Hoping to talk to Dr Bhatti when he comes. Review of Systems Review of Systems: All systems reviewed are negative, apart from the ones contained in the history. Physical Exam Physical Exam: The patient is awake, alert and oriented 3, well developed and well nourished, normocephalic and atraumatic, lying in bed and in no acute distress. HEENT--PERRL, EOMI, mucous membranes and oropharynx mildly dry Neck--supple. No JVD. No bruits. Thyroid normal, trachea midline, no adenopathy. Heart--normal S1 and S2. No murmurs, rubs or gallops. Lungs--clear bilaterally, no respiratory distress, no accessory muscle use. Abdomen--normal bowel sounds and soft. Extremities--no cyanosis or clubbing. No edema. Dermatologic--normal skin turgor, normal color, no abnormal lymph nodes, no nettie h. Neurologic--cranial nerves II through XII grossly intact. Rheumatologic--normal range of motion. Psychiatric--normal affect. Results & Data Results & Data ([facility]) Vital Signs (Past 12 Hours) Vital Signs Temp Pulse Resp BP Pulse Ox 06/05/21 07:12 97.3 F L 55 L 12 146/61 H 94 PG Care Time/CCT Total # of Minutes Spent Total Time Spent with Patient: Total time spent is greater than 50% in coordination of care (as documented) at patient's floor/unit and/or counseling patient: Coding Level of Care Code 78072 Subseq Hosp Care Lvl 2 Diagnoses Fracture of thoracic spine S22.009A Fall due to ice or snow W00.9XXA HTN (hypertension) I10 Time Spent (min) 35
[2021-06-05] MEDS: CALCITONIN SALMON NA 200 IU/AC 3.7 ML BTL SCH (18:06)
[2021-06-05] MEDS: ENOXAPARIN INJ 40 MG/0.4 ML SYR SQ SCH (20:09)
[2021-06-05] MEDS: hydroCHLOROthiazide 25 MG TAB PO SCH (20:10)
[2021-06-05] MEDS: LOSARTAN POTASSIUM 50 MG TAB PO SCH (20:11)
[2021-06-06] MEDS: ACETAMINOPHEN 325 MG TAB PO SCH ×5 (00:20→23:27)
[2021-06-06] MEDS: MoRPHine SULFATE 2 MG/ML CARP IV PRN ×2 (03:53→23:26)
[2021-06-06] MEDS: LEVOTHYROXINE SODIUM 50 MCG TABLET PO SCH (06:15)
[2021-06-06] MEDS: DICLOFENAC SOD 1% GEL 100 GM TUBE EXT PRN ×2 (08:12→20:42)
[2021-06-06] MEDS: CHOLECALCIFEROL 1,000 UNITS 25 MCG TAB PO SCH (08:12)
[2021-06-06] MEDS: CEROVITE ADV FORMULA TAB PO SCH (08:13)
[2021-06-06] MEDS: MAGNESIUM OXIDE 400 MG TAB PO SCH ×2 (08:13→20:41)
[2021-06-06] MEDS: OMEGA-3 (PURIFIED FISH OIL) 1 GM CAP PO SCH ×2 (08:13→20:39)
[2021-06-06] MEDS: LIDOCAINE 5% 1 PATCH TD SCH (08:14)
[2021-06-06] MEDS: DOCUSATE SODIUM/SENNA 50/8.6MG TAB PO SCH (08:20)
[2021-06-06] MEDS: POLYETHYLENE (MIRALAX) 17 GM PACK PO PRN (08:20)
--- NOTE | 2021-06-06 09:01 | Orthopedic Progress Note ---
Date of Service June 06, 2021 Assessment & Plan (1) Fracture of thoracic spine: Plan: At this time I will encourage her to continue with physical therapy and to wear the brace when out of bed. If she is steadily improved in the next day or so and becomes independent she may would to return home versus rehab setting. Hopefully can avoid any surgical intervention. Admission and Anticipated Discharge Date Admission Date: June 03, 2021 Subjective At this time the patient has been fitted with a brace. She states she ambulated yesterday with the brace. She still complains of pain mostly with transitions particular when getting out of bed. She denies any leg pain right now. Physical Exam Physical Exam: On exam she is up in bed. She is comfortable this time. She is good strength testing lower extremities. Results & Data ([facility]) Vital Signs (Past 12 Hours) Vital Signs Temp Pulse Resp BP Pulse Ox 06/06/21 07:40 36.5 C 51 L 18 146/72 H 96 06/05/21 22:40 36.4 C L 57 L 16 127/68 96
--- NOTE | 2021-06-06 10:33 | Pain Management Progress Note ---
Date of Service June 06, 2021 Assessment & Plan (1) Lumbar spinal stenosis: (2) Lumbago: Plan: 1. Patient was encouraged to trial tramadol 50 mg p.o. for breakthrough pain today to assess efficacy/tolerability and she verbalized understanding. 2. Patient will continue with utilization of Lidoderm patch. 3. There remains no role for interventional pain management at this time. Admission and Anticipated Discharge Date Admission Date: June 03, 2021 Subjective Mrs. Mandel is an 85-year-old who was admitted after sustaining a fall with increased low back pain with diagnosis of an acute T11 compression fracture. The patient does report history of chronic axial low back pain in the lower lumbar region without recent change.-No current radicular component. Patient was encouraged to trial tramadol yesterday for as needed breakthrough pain although the patient did not trial the medication. She did utilize IV morphine x1 over the past 24 hours. Patient reports her current pain is minimal in the supine position rating at a 3-4/10. Her pain can escalate to a 7-8/10 with movement and any attempted ambulation. She continues to feel unsteady on her feet and has been working with therapy. Patient remains under the care of Dr. Bhatti who continues to defer kyphoplasty per the patient's report. Patient has no further constitutional complaints at today's visit. Plan of care discussed with Dr. Lima Newman. Pain Assessment Pain Assessment Full Body Front + Back: 1. Thoracolumbar and lumbosacral spine Pain scale - at its best (0-10): 3 Pain scale - at its worst (0-10): 8 Physical Exam Physical Exam: General: Patient sitting quietly upon entering the room in no acute distress eating breakfast. Speech and thought process appropriate. Cognition intact. Back/spine: Patient is minimally tender over the midline in the thoracolumbar junction without focal facet joint tenderness. Minimal paravertebral tenderness. Lower extremities: Sensation intact bilaterally. Strength testing 5/5 with dorsi and plantar flexion. Neurologic: Cranial nerves grossly intact. Ambulation not witnessed.
--- NOTE | 2021-06-06 15:52 | Hospitalist Progress Note ---
Date of Service June 06, 2021 Assessment & Plan (1) Fracture of thoracic spine: Plan: Patient sustained a T11 compression fracture following a mechanical fall at home. Repeat MRI confirms T11 compression fx, with some surrounding area edema Has been fitted with TSLO brace, although complains of some pain especially on movement when [facility] physical therapy Continue pain management, if pain doesnt get better, kyphoplasty may be an option per spine surgery appreciate spine surgery recs (2) Fall due to ice or snow: Plan: Fell when she slipped on ice at home (3) HTN (hypertension): Plan: BP146/72 today Admission and Anticipated Discharge Date Admission Date: June 06, 2021 Subjective Patient seen and examined today, was participating in physical therapy Review of Systems Review of Systems: All systems reviewed are negative, apart from the ones contained in the history. Physical Exam Physical Exam: The patient is awake, alert and oriented 3, well developed and well nourished, normocephalic and atraumatic, lying in bed and in no acute distress. HEENT--PERRL, EOMI, mucous membranes and oropharynx mildly dry Neck--supple. No JVD. No bruits. Thyroid normal, trachea midline, no adenopathy. Heart--normal S1 and S2. No murmurs, rubs or gallops. Lungs--clear bilaterally, no respiratory distress, no accessory muscle use. Abdomen--normal bowel sounds and soft. Extremities--no cyanosis or clubbing. No edema. Dermatologic--normal skin turgor, normal color, no abnormal lymph nodes, no rash. Neurologic--cranial nerves II through XII grossly intact. Rheumatologic--normal range of motion. Psychiatric--normal affect. Results & Data Results & Data ([facility]) Vital Signs (Past 12 Hours) Vital Signs Temp Pulse Resp BP Pulse Ox 06/06/21 07:40 97.7 F 51 L 18 146/72 H 96 PG Care Time/CCT Total # of Minutes Spent Total Time Spent with Patient: Total time spent is greater than 50% in coordination of care (as documented) at patient's floor/unit and/or counseling patient: Coding Level of Care Code 61812 Subseq Hosp Care Lvl 2 Diagnoses Fracture of thoracic spine S22.009A Fall due to ice or snow W00.9XXA HTN (hypertension) I10 Time Spent (min) 35
[2021-06-06] MEDS: traMADol HCL 50 MG TABLET PO PRN (16:28)
[2021-06-06] MEDS: CALCITONIN SALMON NA 200 IU/AC 3.7 ML BTL SCH (17:48)
[2021-06-06] MEDS: ENOXAPARIN INJ 40 MG/0.4 ML SYR SQ SCH (20:39)
[2021-06-06] MEDS: hydroCHLOROthiazide 25 MG TAB PO SCH (20:40)
[2021-06-06] MEDS: LOSARTAN POTASSIUM 50 MG TAB PO SCH (20:41)
[2021-06-06] MEDS: TRIAMCINOLONE ACET 0.1% OINT 15 GM TUBE EXT PRN (20:42)
[2021-06-07] MEDS: LEVOTHYROXINE SODIUM 50 MCG TABLET PO SCH (05:24)
[2021-06-07] MEDS: ACETAMINOPHEN 325 MG TAB PO SCH ×2 (05:25→13:09)
[2021-06-07] MEDS: MoRPHine SULFATE 2 MG/ML CARP IV PRN (05:46)
[2021-06-07] MEDS: DICLOFENAC SOD 1% GEL 100 GM TUBE EXT PRN (07:44)
[2021-06-07] MEDS: CHOLECALCIFEROL 1,000 UNITS 25 MCG TAB PO SCH (07:45)
[2021-06-07] MEDS: traMADol HCL 50 MG TABLET PO PRN (07:45)
[2021-06-07] MEDS: MAGNESIUM OXIDE 400 MG TAB PO SCH (07:45)
[2021-06-07] MEDS: CEROVITE ADV FORMULA TAB PO SCH (07:45)
[2021-06-07] MEDS: OMEGA-3 (PURIFIED FISH OIL) 1 GM CAP PO SCH (07:45)
[2021-06-07] MEDS: LIDOCAINE 5% 1 PATCH TD SCH (07:46)
[2021-06-07] MEDS: POLYETHYLENE (MIRALAX) 17 GM PACK PO PRN (07:47)
[2021-06-07] MEDS: DOCUSATE SODIUM/SENNA 50/8.6MG TAB PO SCH (07:47)
--- NOTE | 2021-06-07 12:35 | Discharge Summary ---
Date of Service June 07, 2021 Admission HPI Per Admitting Provider 85 yo female with PMH described below is coming to the ER after sustaining a fall on . Patient reports that she has severe pain in her lower thoracic back. Patimeagan reports having a mechanical fall on May 25 while walking on her cement pavers. She said she slipped and fell on her back. Since then she has had severe pain in the lower portion of her thoracic back. Patient has followed with he PCP who order c rays which did not show a fracture. She continued to have pain and today was unable to get out of bed. Imaging showed: There is a mild acute superior endplate compression fracture of T11 Principal Diagnosis T11 compression fracture Discharge Exam The patient is awake, alert and oriented 3, well developed and well nourished, normocephalic and atraumatic, lying in bed and in no acute distress. HEENT--PERRL, EOMI, mucous membranes and oropharynx mildly dry Neck--supple. No JVD. No bruits. Thyroid normal, trachea midline, no adenopathy. Heart--normal S1 and S2. No murmurs, rubs or gallops. Lungs--clear bilaterally, no respiratory distress, no accessory muscle use. Abdomen--normal bowel sounds and soft. Extremities--no cyanosis or clubbing. No edema. Dermatologic--normal skin turgor, normal color, no abnormal lymph nodes, no rash. Neurologic--cranial nerves II through XII grossly intact. Rheumatologic--normal range of motion. Psychiatric--normal affect. Discharge Data Allergies Allergy/AdvReac Type Severity Reaction Status Date / Time diphtheria toxoid,fluid Allergy Intermediate LOCAL Verified 06/03/21 15:00 REDNESS AND SWELLING lactose Allergy Intermediate GI UPSET Verified 06/03/21 15:00 milk Allergy Intermediate GI UPSET Verified 06/03/21 15:00 tetanus toxoid, adsorbed Allergy Intermediate LOCAL Verified 06/03/21 15:00 REDNESS AND SWELLING latex Allergy Mild REDNESS, Verified 06/03/21 15:00 RASH alendronate sodium Allergy Unknown PT DOES Verified 06/03/21 15:00 NOT REMEMBER REACTION diltiazem Allergy Unknown PT DOES Verified 06/03/21 15:00 NOT REMEMBER REACTION lisinopril Allergy Unknown PT DOES Verified 06/03/21 15:00 NOT REMEMBER REACTION Sulfa (Sulfonamide Allergy Unknown PT DOES Verified 06/03/21 15:00 Antibiotics) NOT REMEMBER REACTION adhesive AdvReac Intermediate RED SKIN Verified 06/03/21 15:00 W/ BLISTERS FROM BANDAIDS amoxicillin AdvReac Intermediate MUSCLE Verified 06/03/21 15:00 WEAKNESS Consultations 06/03/21 16:43 ED Decision to Admit Stat 06/04/21 11:09 Consult Orthopedic Surgery Routine 06/04/21 11:11 Consult Pain Management Routine Ordered Studies 06/03/21 13:46 CT lumbar spine w con Stat CT thoracic spine w con Stat 06/03/21 13:47 CT abd pelvis IV con only Stat CT cervical spine wo con Stat CT chest diagnostic w con Stat CT head/brain wo con Stat 06/04/21 12:00 MR lumbar spine wo con Urgent Hospital Course (1) Fracture of thoracic spine: Patient sustained a T11 compression fracture following a mechanical fall at home. Repeat MRI confirms T11 compression fx, with some surrounding area edema Has been fitted with TSLO brace, although complains of some pain especially on movement during physical therapy Continue pain management, No plans for surgery per ortho Discharge on Tramadol, Lidoderm patch (2) Fall due to ice or snow: Fell when she slipped on ice at home (3) HTN (hypertension): BP130/70 today Total Time Total Time Spent Total Time Spent (In Minutes): 35 Discharge Plan Discharge Items Patient Disposition: Home - Self-Care Reason For Visit: SEVERE PAIN Discharge Diagnosis: T11 compression fracture Condition on Discharge: Good Activity: Per Instructions section Lifting: Gradually increase as tolerated Non-emergency contact: Primary Care Provider and Surgeon Call non-emergency contact if: you have any medication questions and your symptoms worsen Follow-up/Referrals: Librado Barajas [Primary Care Provider] - Diet: Regular Addtl Attending Provider Instructions: please make appointment to follow up with your regular PCP Pending Studies at Discharge: No Stand-Alone Forms: My [employer], Smoking Cessation Medications and DC Order Prescriptions: New tramadol 50 mg Tablet 50 mg PO Q8H PRN (Reason: back pain) 5 Days Qty: 10 RF: 0 lidocaine 5 % Adhesive Patch,Medicated 1 patch transdermal QAM 5 Days Qty: 5 RF: 0 Continued turmeric 400 mg Capsule 800 mg PO QAM RF: 0 levothyroxine [Synthroid] 50 mcg Tablet 50 mcg PO DAILYBB RF: 0 hydrochlorothiazide 12.5 mg Capsule 12.5 mg PO HS RF: 0 vitamin B complex [B Complex-Vitamin B12] Tablet 1 tab PO QAM PRN (Reason: TAKE WHEN NEEDED) RF: 0 omega [id number]-fish oil [Fish Oil] 1,000 mg (120 mg-180 mg) Capsule 1 cap PO BID RF: 0 multivitamin [Daily Multi-Vitamin] Tablet 1 tab PO QAM RF: 0 losartan [Cozaar] 100 mg Tablet 100 mg PO HS RF: 0 Ocuvite Adult 50 Plus 250-5-1 mg Capsule 1 cap PO QAM RF: 0 magnesium oxide 400 mg magnesium Capsule 400 mg PO BID RF: 0 Cbd Chewable Tablet 1 tab PO DIRECTED PRN (Reason: NEEDED) RF: 0 diclofenac sodium [Voltaren Arthritis Pain] 1 % gel 0.5 g TOPICAL QID PRN (Reason: Pain) RF: 0 Discharge Orders: Discharge Order (Routine); Ordered 06/07/21 Ordered By: Agueda Johnson Admission Data Admit Date/Time: 06/06/21 14:50 Attending Provider: Agueda Johnson Admit Provider: Manoj Arambula Primary Care Provider: Librado Barajas Other Providers: Manoj Arambula ; Roque Bhatti ; Lima Newman Coding Level of Care Code D/C DAY MANAGEMENT >30 MINS Diagnoses Fracture of thoracic spine S22.009A Fall due to ice or snow W00.9XXA HTN (hypertension) I10 Time Spent (min) 35
== END 2021-06-07 17:05 | disposition home health service (06) ==
LOC: 3N 13:16 → ED 13:16 → SUATTDRO 16:55 → 3N 19:22